=== PATIENT | female | born 1975 | race African-American/Black ===

== ENCOUNTER 2017-04-03 16:43 | Emergency (ER) | payer MEDICARE, MEDICAID ==
--- NOTE | 2017-04-03 17:57 | ULT ---
RIGHT LOWER EXTREMITY VENOUS DOPPLER ULTRASOUND: Date: 04-03-17 Comparison: None. History: Pain. History of blood clot. Assess for DVT. Technique: Multiplanar grayscale sonographic imaging of the venous structures of the right lower extr emity obtained with color flow and spectral analysis. FINDINGS: The right common femoral vein, greater saphenous vein, profunda femoral vein, femoral vein, popliteal vein, and posterior tibial vein are patent. There is normal blood flow, augmentation, and compression within the deep venous system on the right. No evidence for deep venous thrombosis of the right lower extremity. IMPRESSION: No evidence for deep venous thrombosis of the right lower extremity. POS: [facility]
[2017-04-03] MEDS ORDERED: Ketorolac Tromethamine 30 MG/ML VIAL ONE (18:50)
== END 2017-04-03 19:27 | disposition home or self-care (01) ==
LOC: ERS 16:43
DX: M25.561 Pain in right knee (principal); I11.0 Hypertensive heart disease with heart failure; I50.9 Heart failure, unspecified; E11.9 Type 2 diabetes mellitus without complications; G47.30 Sleep apnea, unspecified; J45.909 Unspecified asthma, uncomplicated; F41.9 Anxiety disorder, unspecified; F32.9 Major depressive disorder, single episode, unspecified; M79.605 Pain in left leg
CPT/HCPCS: 96372; J1885

== ENCOUNTER 2017-05-26 02:14 | Emergency (ER) | payer MEDICARE, MEDICAID ==
[2017-05-26] MEDS ORDERED: Bupivacaine 0.25% 10 ML VIAL ONE (02:29)
[2017-05-26] MEDS ORDERED: Lidocaine 1% w/Epinephrine 1:100K 20 ML VIAL ONE (02:29)
[2017-05-26] MEDS ORDERED: Lidocaine Viscous Sol 2% 15 ml UD Cup ONE (02:31)
[2017-05-26 02:39] LABS: Specific Gravity 1.025 (1.002-1.036)
[2017-05-26 02:40] LABS: Pregnancy Test - Urine (BHCG) Negative (Negative); Pregu Control Background? CLEAR/WHITE (CLR/WHITE); Pregu Control Bar Appear? YES (CONTROL BAR)
[2017-05-26] MEDS ORDERED: Ketorolac Tromethamine 30 MG/ML VIAL ONE (02:54)
== END 2017-05-26 03:13 | disposition home or self-care (01) ==
LOC: ERS 02:14
DX: K02.9 Dental caries, unspecified (principal); I11.0 Hypertensive heart disease with heart failure; I50.9 Heart failure, unspecified; E11.9 Type 2 diabetes mellitus without complications; E03.9 Hypothyroidism, unspecified; G47.30 Sleep apnea, unspecified; J45.909 Unspecified asthma, uncomplicated; F41.9 Anxiety disorder, unspecified; F32.9 Major depressive disorder, single episode, unspecified; Z79.82 Long term (current) use of aspirin; Z79.84 Long term (current) use of oral hypoglycemic drugs; Z79.899 Other long term (current) drug therapy
CPT/HCPCS: 81025; 99283; J1885; J2001; S0020

== ENCOUNTER 2017-08-05 16:40 | Emergency (ER) | payer MEDICARE, MEDICAID ==
[2017-08-05 17:10] LABS: #Eosinphils 0.1 thou/uL (0.0-0.7); #Lymphocytes 1.6 thou/uL (1.20-3.40); #Monocytes 0.4 thou/uL (0.11-0.59); #Neutrophils 2.4 thou/uL (1.40-6.50); %Basophils 0.6 % (0.0-1.0); %Eosinophils 2.6 % (0.0-10.0); %Lymphocytes 35.5 % (21.0-51.0); %Monocytes 9.4 % (0.0-10.0); %Neutrophils 51.9 % (42.0-75.0); Hemoglobin 11.7 g/dL (12.0-16.0); Mean Corpuscular HGB CONC 34.2 g/dL (32.0-36.0); Mean Corpuscular Hemoglobin 29.6 pg (27.0-31.0); Mean Corpuscular Volume 86.5 fL (78.0-98.0); Mean Platelet Volume 5.9 fL (7.4-10.4); Platelet Count 250 thou/uL (130-400); RBC Distribution Width 12.4 % (11.5-14.5); Red Blood Cell (RBC) Count 3.96 mill/uL (4.20-5.40); White Blood Cell (WBC) Count 4.6 thou/uL (4.8-10.8)
[2017-08-05] MEDS ORDERED: Nitroglycerin 0.4 MG TAB (25 Tab Bottle) ONE (17:18)
[2017-08-05 17:29] LABS: ALT (SGPT) 30 U/L (8-55); AST (SGOT) 24 U/L (5-34); Albumin 4.1 g/dL (3.5-5.0); Alkaline Phosphatase 81 U/L (40-150); Anion Gap 12 mmol/L (10-20); BUN (Urea Nitrogen) 10 mg/dL (7.0-18.7); Bilirubin, Total 0.3 mg/dL (0.2-1.2); Calc. Creatinine Clearance 0 mL/min (70-130); Calcium 9.2 mg/dL (7.8-10.44); Carbon Dioxide 28 mmol/L (22-29); Chloride 101 mmol/L (98-107); Estimated GFR-MDRD Greater than 90; Globulin 4.2 g/dL (2.4-3.5); Glucose 103 mg/dL (70-105); Lipase 15 U/L (8-78); Protein, Total 8.3 g/dL (6.0-8.3); Sodium 137 mmol/L (136-145)
[2017-08-05 17:31] LABS: CKMB 0.9 ng/mL (0-6.6); Troponin I Less than 0.010 ng/mL (< 0.028)
[2017-08-05] MEDS ORDERED: Acetaminophen 500 MG TAB ONE (17:59)
--- NOTE | 2017-08-05 18:21 | RAD ---
PORTABLE CHEST ONE VIEW: 08/05/17 at 5:04 p.m. HISTORY: Chest pain. FINDINGS: Comparison made with exam of 08/10/16. The heart size is normal. The lungs are well expanded without lobar consolidation, pneumothoraces, fr ank pulmonary edema or pleural effusion. IMPRESSION: No radiographic evidence of acute cardiopulmonary process. POS: [facility]
[2017-08-05 20:40] LABS: Troponin I Less than 0.010 ng/mL (< 0.028)
--- NOTE | 2017-08-06 02:13 | HP ---
DATE OF EVALUATION: 08/05/2017 PRIMARY CARE PROVIDER: Manisha Clayton M.D. CHIEF COMPLAINT: Right upper back and chest pain. HISTORY OF PRESENT ILLNESS: This is a 42-year-old -[place] female who presents to [facility] complaining of one day history of increased right upper back and right-sided chest pain. The patient states that she was mowing her yard and weed eating during the afternoon on 08/04/2017, noticing increased tightness and pain in the right upper chest in the evening 08/04/2017. The patient became concerned when the pain was worse and presented to the emergency room for evalua tion. The patient denied any direct trauma, shortness of breath, fever, chills, increased cough, con gestion, or hemoptysis. The patient denied any left arm discomfort, jaw pain, unilateral weakness, i ncreased lower extremity swelling. The patient admits to history of diabetes mellitus type 2, hypert ension, hypothyroidism, and seizure disorder. The patient denies any recent change in chronic medica tion regimen, exposure history or known sick contacts. In the emergency room, the patient underwent general evaluation including metabolic screening which was negative. The patient was noted with elev ated blood pressure at the time of admission in the emergency room, treated with topical nitroglyceri n and aspirin 324 mg. The patient also received 1 gram of Tylenol and intravenous normal saline x500 mL. PAST MEDICAL HISTORY: 1. Hypertension. 2. Diabetes mellitus type 2. 3. Hypothyroidism. 4. Seizure disorder. 5. Degenerative joint disease. PAST SURGICAL HISTORY: 1. Status post left knee arthroscopy. 2. Status post left total knee arthroplasty. 3. Status post left patellofemoral resurfacing with revision of left total knee arthroplasty in 2017 . CURRENT MEDICATIONS: Based on previous evaluation in 2017: 1. Aspirin 81 mg 1 tab p.o. daily. 2. Trilipix 135 mg p.o. daily. 3. Lisinopril/hydrochlorothiazide 30 mg/12.5 mg p.o. daily. 4. Amlodipine 5 mg one tablet p.o. daily. 5. Metformin 500 mg p.o. b.i.d. 6. Prilosec 20 mg p.o. daily. 7. Phenytoin 200 mg p.o. q.a.m. and 300 mg p.o. at bedtime. 8. Levothyroxine 100 mcg p.o. daily. ALLERGIES: TRAMADOL, NIACIN. FAMILY HISTORY: Positive for arrhythmia in her mother with defibrillator placement. SOCIAL HISTORY: The patient is , resides in the [place], [place] area. No tobacco, alcohol, or i llicit drug use. Functional of all activities of daily living. REVIEW OF SYSTEMS: The following complete review of systems was negative, unless otherwise mentioned in the HPI or below: Constitutional: Weight loss or gain, ability to conduct usual activities. Sk in: Rash, itching. Eyes: Double vision, pain. ENT/Mouth: Nose bleeding, neck stiffness, pain, ten derness. Cardiovascular: Palpitations, dyspnea on exertion, orthopnea. Respiratory: Shortness of breath, wheezing, cough, hemoptysis, fever or night sweats. Gastrointestinal: Poor appetite, abdomi nal pain, heartburn, nausea, vomiting, constipation, or diarrhea. Genitourinary: Urgency, frequency , dysuria, nocturia. Musculoskeletal: Pain, swelling. Neurologic/Psychiatric: Anxiety, depression . Allergy/Immunologic: Skin rash, bleeding tendency. Otherwise negative except as stated per HPI. PHYSICAL EXAMINATION: VITAL SIGNS: Currently, blood pressure 126/71, pulse 85, respiratory rate 18, temperature 98.6 degre es Fahrenheit, O2 saturation 97% on room air. GENERAL APPEARANCE: This is a 42-year-old -[place] female, alert and oriented x3, pleasant, conversant, in no acute distress. HEENT: Pupils are equal, round, and reactive to light and accommodation. Extraocular muscles are in tact. No scleral icterus, no conjunctival injection. Nares patent. OP is clear. Teeth in fair rep air. NECK: Supple, no cervical adenopathy, no thyromegaly, no carotid bruits, no JVD appreciated. Cervic al spine with full active and passive range of motion. No meningeal signs appreciated. CHEST: Lungs are clear to auscultation bilaterally. CARDIOVASCULAR: S1, S2, without noted murmur, rub or gallop. ABDOMEN: Obese, soft, nontender, nondistended. Bowel sounds are positive in all four quadrants. Th ere is no hepatosplenomegaly, no abdominal bruits, no rebound or guarding appreciated. EXTREMITIES: Warm and dry with fair turgor. No clubbing, cyanosis or asymmetric edema appreciated. Pulses palpable distally at the dorsalis pedis, posterior tibial, and popliteal arteries bilaterally . Capillary refill less than 2 seconds. NEUROLOGIC: Cranial nerves II-XII are grossly intact. No focal or lateralizing signs appreciated. MUSCULOSKELETAL: Positive reproducible chest pain in the right upper chest wall in the pectoral latisha on as well as right upper back in the suprascapular region. PERTINENT LABORATORY AND X-RAY FINDINGS: Complete metabolic profile within normal limits. Troponin I negative x1. BNP less than 10. CBC showed hemoglobin 12, hematocrit 34, and platelet count 250. Portable chest x-ray dated 08/05/2017 showed no acute cardiopulmonary process. EKG dated 08/05/2017 by my interpretation shows sinus mechanism with heart rates in the 70s. Normal R-wave progression no zacarias in precordial leads. Normal axis. No acute ST-T wave changes appreciated. ASSESSMENT AND PLAN: 1. Musculoskeletal chest pain. The patient will be treated with ibuprofen 800 mg p.o. t.i.d. p.r.n. pain. Education reassurance given. General range of motion exercises. No evidence to suggest card iogenic source. 2. Hypertension, improved. Resume home antihypertensive regimen and monitor clinical response. 3. Hypothyroidism. Continue home levothyroxine 100 mcg p.o. daily. 4. Diabetes mellitus type 2, stable. Continue metformin 500 mg p.o. b.i.d. DISPOSITION: Discharged home 08/05/2017 with follow up with primary care provider, Dr. Clayton.
== END 2017-08-05 20:16 | disposition home or self-care (01) ==
LOC: ERS 16:40
DX: R07.89 Other chest pain (principal); E11.9 Type 2 diabetes mellitus without complications; E03.9 Hypothyroidism, unspecified; I11.0 Hypertensive heart disease with heart failure; G47.30 Sleep apnea, unspecified; J45.909 Unspecified asthma, uncomplicated; F41.9 Anxiety disorder, unspecified; F32.9 Major depressive disorder, single episode, unspecified; Z86.718 Personal history of other venous thrombosis and embolism
CPT/HCPCS: 36415; 71045; 80053; 82553; 83690; 83880; 84484; 85025; 93005; 96360

== ENCOUNTER 2018-01-03 23:50 | Emergency (ER) | payer MEDICARE, OTHER ==
--- NOTE | 2018-01-04 08:28 | RAD ---
CHEST TWO VIEWS: History: Cough. Comparison: 2012 FINDINGS: Lungs are clear. No pneumothorax or effusion. Cardiac silhouette and mediastinal contours are within normal limits. IMPRESSION: No acute intrathoracic abnormality. POS: [facility]
== END 2018-01-04 02:58 | disposition home or self-care (01) ==
LOC: ERS 23:50
DX: J20.9 Acute bronchitis, unspecified (principal); H10.9 Unspecified conjunctivitis; E11.9 Type 2 diabetes mellitus without complications; E03.9 Hypothyroidism, unspecified; I10 Essential (primary) hypertension; G47.30 Sleep apnea, unspecified; J45.909 Unspecified asthma, uncomplicated; Z86.718 Personal history of other venous thrombosis and embolism; F41.9 Anxiety disorder, unspecified; F32.9 Major depressive disorder, single episode, unspecified; Z79.84 Long term (current) use of oral hypoglycemic drugs; Z79.899 Other long term (current) drug therapy; Z79.82 Long term (current) use of aspirin
CPT/HCPCS: 71046; 87804

== ENCOUNTER 2018-05-10 18:00 | Emergency (ER) | payer MEDICARE, MEDICAID ==
[2018-05-10] MEDS ORDERED: Ondansetron ODT 4 MG TAB ONE (18:28)
[2018-05-10] MEDS ORDERED: Acetaminophen 500 MG TAB ONE (18:48)
== END 2018-05-10 20:25 | disposition home or self-care (01) ==
LOC: ERS 18:00
DX: R11.2 Nausea with vomiting, unspecified (principal); R19.7 Diarrhea, unspecified; E11.9 Type 2 diabetes mellitus without complications; I11.0 Hypertensive heart disease with heart failure; I50.9 Heart failure, unspecified; E03.9 Hypothyroidism, unspecified; J45.909 Unspecified asthma, uncomplicated; F41.9 Anxiety disorder, unspecified; F32.9 Major depressive disorder, single episode, unspecified; Z86.718 Personal history of other venous thrombosis and embolism
CPT/HCPCS: 87804; 96372; J0500; Q0162

== ENCOUNTER 2018-07-20 00:18 | Emergency (ER) | payer MEDICARE, OTHER ==
[2018-07-20] MEDS ORDERED: Ondansetron ODT 4 MG TAB ONE (01:39)
[2018-07-20] MEDS ORDERED: Morphine 4 MG/ML VIAL ONE (01:39)
[2018-07-20] MEDS ORDERED: Lidocaine 1% w/Epinephrine 1:100K 20 ML VIAL ONE (01:47)
--- NOTE | 2018-07-20 07:47 | RAD ---
XR Elbow Rt 4 View STANDARD History: [Fall. Injury.] Comparison: None. Findings: No significant joint effusion. No acute displaced fracture or malalignment. Soft tissues ar e unremarkable. Impression: No acute displaced fracture or malalignment.
--- NOTE | 2018-07-20 07:49 | RAD ---
XR Shoulder Rt 3 View STANDARD History: [Fall. Pain.] Comparison: None. Findings: There is abnormal widening between the scapular body and the ribs. Acromioclavicular alignm ent is normal. Normal glenohumeral alignment. No acute rib fracture. Impression: Findings concerning for scapulothoracic dissociation probably be sequelae of habitus. Cli nical correlation and orthopedic consultation advised.
--- NOTE | 2018-07-20 07:51 | CT ---
PRELIMINARY REPORT/[facility]/EMERGENCY AFTER HOURS PROCEDURE: EXAM: CT Head Without Contrast EXAM DATE/TIME: 07/20/2018 1:21 AM CLINICAL HISTORY: 43 years old, female; Injury or trauma; Initial encounter; Abrasion; Head, generalized; Patient HX: P revious on pacs. . . Er 9. . . 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 Pain on the arm. Patient c. O head pain. Unknown loc. TECHNIQUE: Imaging protocol: Axial computed tomography images of the head without contrast. COMPARISON: No relevant prior studies available. FINDINGS: Brain: No hemorrhage. No significant white matter disease. No edema. Ventricles: No ventriculomegaly. Bones/joints: Unremarkable. No acute fracture. Sinuses: Visualized sinuses are unremarkable. No fluid levels. Mastoid air cells: Visualized mastoid air cells are well aerated. No mastoid effusion. Soft tissues: Unremarkable. IMPRESSION: No acute intracranial abnormality. Thank you for allowing us to participate in the care of your patient. Dictated and Authenticated by: Linda Carvalho MD 07/20/2018 2:18 AM Central Time ([place] & [place]) FINAL REPORT HEAD CT WITHOUT CONTRAST: Date: 07/20/18 HISTORY: Fall. Pain. COMPARISON: 04/21/15. FINDINGS: No parenchymal hemorrhage or extra-axial hematoma. Brain volume is age-appropriate. Cortical ochoa-whi te matter differentiation preserved. Calvarium is intact. There is a foreign body or possible surgical clips in the left lateral periorbit al soft tissues. Correlate clinically. IMPRESSION: This report is in agreement with the preliminary report by Nayana. 1. No intracranial post-traumatic sequelae. 2. Probable surgical clips in the left lateral periorbital soft tissues. Correlate clinically. CODE T. POS: [facility]
--- NOTE | 2018-07-20 07:52 | RAD ---
XR Forearm Rt 2 View STANDARD History: [Fall. Forearm pain.] Comparison: None. Findings: Soft tissues are edematous. No acute displaced fracture or malalignment of the forearm. Impression: Intact forearm.
--- NOTE | 2018-07-20 07:56 | RAD ---
THREE VIEWS RIGHT WRIST: COMPARISON: 01/11/2013. HISTORY: Fall with right wrist pain. FINDINGS: Three views right wrist show no evidence of acute fracture or dislocation. Bone anchors are seen in the scaphoid from prior right wrist surgery. No degenerative changes are seen. IMPRESSION: No evidence of acute osseous abnormality. POS: [facility]
--- NOTE | 2018-07-20 07:57 | CT ---
PRELIMINARY REPORT/[facility]/EMERGENCY AFTER HOURS PROCEDURE: EXAM: CT Head Without Contrast EXAM DATE/TIME: 07/20/2018 1:21 AM CLINICAL HISTORY: 43 years old, female; Injury or trauma; Initial encounter; Abrasion; Head, generalized; Patient HX: P revious on pacs. . . Er 9. . . 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 Pain on the arm. Patient c. O head pain. Unknown loc. TECHNIQUE: Imaging protocol: Axial computed tomography images of the head without contrast. COMPARISON: No relevant prior studies available. FINDINGS: Brain: No hemorrhage. No significant white matter disease. No edema. Ventricles: No ventriculomegaly. Bones/joints: Unremarkable. No acute fracture. Sinuses: Visualized sinuses are unremarkable. No fluid levels. Mastoid air cells: Visualized mastoid air cells are well aerated. No mastoid effusion. Soft tissues: Unremarkable. IMPRESSION: No acute intracranial abnormality. Thank you for allowing us to participate in the care of your patient. Dictated and Authenticated by: Linda Carvalho MD 07/20/2018 2:18 AM Central Time ([place] & [place]) FINAL REPORT CT CERVICAL SPINE WITHOUT CONTRAST: Date: 07/20/18 COMPARISON: 04/21/15. HISTORY: Fall. Pain. Trauma. FINDINGS: This report is in agreement with the preliminary report by Nayana. No evidence of fracture or dislocati on. There are degenerative changes with varying degrees of central canal stenosis and foraminal narro wing. IMPRESSION: No fracture. POS: [facility]
== END 2018-07-20 03:25 | disposition home or self-care (01) ==
LOC: ERS 00:18
DX: S41.111A Laceration without foreign body of right upper arm, initial encounter (principal); S09.90XA Unspecified injury of head, initial encounter; M54.2 Cervicalgia; F41.9 Anxiety disorder, unspecified; F32.9 Major depressive disorder, single episode, unspecified; E11.9 Type 2 diabetes mellitus without complications; E03.9 Hypothyroidism, unspecified; I11.0 Hypertensive heart disease with heart failure; I50.9 Heart failure, unspecified; Z86.718 Personal history of other venous thrombosis and embolism; Z79.899 Other long term (current) drug therapy; Z79.84 Long term (current) use of oral hypoglycemic drugs; W19.XXXA Unspecified fall, initial encounter
CPT/HCPCS: 12002; 70450; 72125; 96372; J2001; J2270; Q0162

== ENCOUNTER 2018-08-04 16:54 | Emergency (ER) | payer MEDICARE, OTHER | END 2018-08-04 17:33 | disposition home or self-care (01) | LOC: ERS 16:54 | DX: S41.111D Laceration without foreign body of right upper arm, subsequent encounter (principal); L03.113 Cellulitis of right upper limb; E11.9 Type 2 diabetes mellitus without complications; I11.0 Hypertensive heart disease with heart failure; I50.9 Heart failure, unspecified; E03.9 Hypothyroidism, unspecified; J45.909 Unspecified asthma, uncomplicated; F41.9 Anxiety disorder, unspecified; F32.9 Major depressive disorder, single episode, unspecified; W26.8XXD Contact with other sharp object(s), not elsewhere classified, subsequent encounter; Z86.718 Personal history of other venous thrombosis and embolism; Z79.84 Long term (current) use of oral hypoglycemic drugs; Z79.899 Other long term (current) drug therapy | CPT/HCPCS: 99281 ==

== ENCOUNTER 2018-10-14 03:35 | Emergency (ER) | payer MEDICARE, OTHER ==
[2018-10-14 04:10] LABS: #Eosinphils 0.1 thou/uL (0.0-0.7); #Lymphocytes 1.6 thou/uL (1.20-3.40); #Monocytes 0.5 thou/uL (0.11-0.59); %Basophils 0.6 % (0.0-1.0); %Eosinophils 1.2 % (0.0-10.0); %Lymphocytes 30.5 % (21.0-51.0); %Monocytes 9.1 % (0.0-10.0); %Neutrophils 58.7 % (42.0-75.0); Hemoglobin 11.6 g/dL (12.0-16.0); Mean Corpuscular HGB CONC 34.9 g/dL (32.0-36.0); Mean Corpuscular Hemoglobin 31.1 pg (27.0-31.0); Mean Corpuscular Volume 89.1 fL (78.0-98.0); Platelet Count 255 thou/uL (130-400); RBC Distribution Width 12.2 % (11.5-14.5); Red Blood Cell (RBC) Count 3.73 mill/uL (4.20-5.40); White Blood Cell (WBC) Count 5.2 thou/uL (4.8-10.8)
--- NOTE | 2018-10-14 07:45 | ULT ---
PRELIMINARY REPORT/[facility]/EMERGENCY AFTER HOURS PROCEDURE: EXAM: US Duplex Right Lower Extremity Veins, Limited EXAM DATE/TIME: 10/14/2018 4:23 AM CLINICAL HISTORY: 43 years old, female; Other: Pain- RT knee/ thigh TECHNIQUE: Imaging protocol: Real-time Duplex ultrasound of the Right Lower Extremity with 2-D ochoa scale, color Doppler flow and spectral waveform analysis with image documentation. Limited exam was focused on th e right lower extremity veins. COMPARISON: No relevant prior studies available. FINDINGS: Right deep veins: Unremarkable. The common femoral, femoral, proximal profunda femoral and popliteal veins are patent without thrombus. Normal Doppler waveforms. Normal compressibility and/or augmentati on response. Right superficial veins: Unremarkable. Saphenofemoral junction is patent without thrombus. Soft tissues: 2.4 x 1.6 x 0.6 cm fluid pocket at the lateral aspect of the right knee suspicious for a small joint effusion. IMPRESSION: 1. No DVT. 2. 2.4 x 1.6 x 0.6 cm fluid pocket at the lateral aspect of the right knee suspicious for a small елена nt effusion. Thank you for allowing us to participate in the care of your patient. Dictated and Authenticated by: Roger Rodríguez MD 10/14/2018 5:30 AM Central Time ([place] & [place]) FINAL REPORT EMERGENCY AFTER HOURS RIGHT LOWER EXTREMITY VENOUS DUPLEX ULTRASOUND INCLUDING COLOR AND SPECTRAL DOP PLER IMAGING: DATE: HISTORY: Pain right knee and thigh. History of deep venous thrombosis in the past. FINDINGS: Exam performed from groin to ankle, including visualized greater saphenous, common femoral, superfici al femoral, profunda femoral, popliteal, trifurcation, and posterior tibial vein regions. There is ph asic flow at all levels with normal compressibility and normal augmentation. No intraluminal thrombus . There is a small fluid collection in the lateral aspect at the right knee probably joint effusion. IMPRESSION: No evident for deep venous thrombosis. Report in agreement with preliminary report given on-call by Nayana. POS: [facility]
== END 2018-10-14 05:42 | disposition home or self-care (01) ==
LOC: ERS 03:35
DX: M79.604 Pain in right leg (principal); I11.0 Hypertensive heart disease with heart failure; I50.9 Heart failure, unspecified; E11.9 Type 2 diabetes mellitus without complications; E03.9 Hypothyroidism, unspecified; G47.30 Sleep apnea, unspecified; J45.909 Unspecified asthma, uncomplicated; Z86.718 Personal history of other venous thrombosis and embolism; F41.9 Anxiety disorder, unspecified; F32.9 Major depressive disorder, single episode, unspecified; Z79.899 Other long term (current) drug therapy
CPT/HCPCS: 36415; 85025

== ENCOUNTER 2018-11-19 09:32 | Emergency (ER) | payer MEDICARE, OTHER ==
[2018-11-19 10:11] LABS: #Eosinphils 0.1 thou/uL (0.0-0.7); #Lymphocytes 1.8 thou/uL (1.20-3.40); #Monocytes 0.5 thou/uL (0.11-0.59); #Neutrophils 2.7 thou/uL (1.40-6.50); %Basophils 0.5 % (0.0-1.0); %Eosinophils 2.4 % (0.0-10.0); %Lymphocytes 35.4 % (21.0-51.0); %Monocytes 10.1 % (0.0-10.0); %Neutrophils 51.7 % (42.0-75.0); Hemoglobin 11.6 g/dL (12.0-16.0); Mean Corpuscular HGB CONC 34.2 g/dL (32.0-36.0); Mean Corpuscular Hemoglobin 29.9 pg (27.0-31.0); Mean Corpuscular Volume 87.4 fL (78.0-98.0); Mean Platelet Volume 6.2 fL (7.4-10.4); Platelet Count 235 thou/uL (130-400); RBC Distribution Width 11.8 % (11.5-14.5); Red Blood Cell (RBC) Count 3.89 mill/uL (4.20-5.40); White Blood Cell (WBC) Count 5.2 thou/uL (4.8-10.8)
--- NOTE | 2018-11-19 10:13 | RAD ---
PORTABLE CHEST 1 VIEW: DATE: 11/19/2018. TIME: 9:54 a.m. HISTORY: Dyspnea. Dizziness. FINDINGS: Comparison is made to the exam of 08/05/2017. The heart size is normal. No focal areas of consolidation, pneumothoraces, or pleural effusions are seen. IMPRESSION: No radiographic evidence of acute cardiopulmonary process. POS: [facility]
[2018-11-19 10:38] LABS: ALT (SGPT) 23 U/L (8-55); AST (SGOT) 25 U/L (5-34); Albumin 4.1 g/dL (3.5-5.0); Alkaline Phosphatase 66 U/L (40-110); Anion Gap 11 mmol/L (10-20); BUN (Urea Nitrogen) 10 mg/dL (7.0-18.7); Bilirubin, Total 0.2 mg/dL (0.2-1.2); Calc. Creatinine Clearance 0 mL/min (70-130); Carbon Dioxide 28 mmol/L (22-29); Chloride 104 mmol/L (98-107); Estimated GFR-MDRD Greater than 90; Globulin 3.3 g/dL (2.4-3.5); Glucose 118 mg/dL (70-105); Protein, Total 7.4 g/dL (6.0-8.3); Sodium 139 mmol/L (136-145)
[2018-11-19 11:09] LABS: Actual Bicarbonate (HCO3a) 23.5 mEq/L (22-28); Analyzer IN Cardio ER; Base Excess (BEa) -0.7 mEq/L (-2.0 to +3.0); Calcium, Ionized 1.19 mmol/L (1.12-1.30); Carboxyhemoglobin (COHb) 0.3 gm% (0.0-3.0); Hemoglobin (Hb) 12.4 g/dL (12.0-16.0); O2 Tension (PaO2) 97.1 mmHg (80.0-100.0); Potassium - ABG Lab 3.83 mmol/L (3.70-5.30); pH, Arterial 7.42 (7.35-7.45)
[2018-11-19 11:10] LABS: Puncture Site RRA
== END 2018-11-19 12:12 | disposition home or self-care (01) ==
LOC: ERS 09:32
DX: J04.0 Acute laryngitis (principal); E11.9 Type 2 diabetes mellitus without complications; E03.9 Hypothyroidism, unspecified; I11.0 Hypertensive heart disease with heart failure; I50.9 Heart failure, unspecified; J45.909 Unspecified asthma, uncomplicated; Z86.718 Personal history of other venous thrombosis and embolism; F41.9 Anxiety disorder, unspecified; F32.9 Major depressive disorder, single episode, unspecified; Z79.899 Other long term (current) drug therapy; Z79.82 Long term (current) use of aspirin; Z79.84 Long term (current) use of oral hypoglycemic drugs
CPT/HCPCS: 36415; 71045; 80053; 82805; 84484; 85025; 93005

== ENCOUNTER 2019-04-21 23:58 | Emergency (ER) | payer MEDICARE, MEDICAID | END 2019-04-22 01:45 | disposition home or self-care (01) | LOC: ERS 23:58 | DX: S20.212A Contusion of left front wall of thorax, initial encounter (principal); S20.211A Contusion of right front wall of thorax, initial encounter; M62.838 Other muscle spasm; I20.9 Angina pectoris, unspecified; I11.0 Hypertensive heart disease with heart failure; I50.9 Heart failure, unspecified; E11.9 Type 2 diabetes mellitus without complications; E03.9 Hypothyroidism, unspecified; G47.30 Sleep apnea, unspecified; J45.909 Unspecified asthma, uncomplicated; Z86.718 Personal history of other venous thrombosis and embolism; F41.9 Anxiety disorder, unspecified; F32.9 Major depressive disorder, single episode, unspecified; Z79.899 Other long term (current) drug therapy; Z79.84 Long term (current) use of oral hypoglycemic drugs; Z79.82 Long term (current) use of aspirin; Z79.51 Long term (current) use of inhaled steroids; V43.52XA Car driver injured in collision with other type car in traffic accident, initial encounter | CPT/HCPCS: 99281 ==

== ENCOUNTER 2019-11-14 11:26 | Emergency (ER) | payer MEDICARE, MEDICAID ==
[2019-11-14] MEDS ORDERED: Aspirin Chewable 81 MG TAB ONE (12:15)
[2019-11-14] MEDS ORDERED: Morphine 4 MG/ML VIAL ONE (12:15)
[2019-11-14] MEDS ORDERED: Ondansetron PF 4 MG/2 ML Vial ONE (12:15)
[2019-11-14] MEDS ORDERED: Acetaminophen 500 MG TAB ONE (12:15)
--- NOTE | 2019-11-14 12:22 | RAD ---
CHEST 1 VIEW: Date: 11/14/2019 HISTORY: Mid sternal chest pain. COMPARISON: 11/19/2018. FINDINGS: Normal cardiac silhouette. Pulmonary vessels and hilum are normal. Costophrenic angles are clear. No consolidation or mass. No pneumothorax or acute osseous abnormalities. IMPRESSION: No acute cardiopulmonary process. POS: [facility]
[2019-11-14 12:34] LABS: #Eosinphils 0.1 thou/uL (0.0-0.7); #Lymphocytes 1.9 thou/uL (1.20-3.40); #Monocytes 0.4 thou/uL (0.11-0.59); #Neutrophils 1.7 thou/uL (1.40-6.50); %Basophils 1.1 % (0.0-1.0); %Eosinophils 3.1 % (0.0-10.0); %Lymphocytes 45.9 % (21.0-51.0); %Monocytes 9.9 % (0.0-10.0); %Neutrophils 40.1 % (42.0-75.0); Mean Corpuscular HGB CONC 32.9 g/dL (32.0-36.0); Mean Corpuscular Volume 88.2 fL (78.0-98.0); Mean Platelet Volume 6.4 fL (7.4-10.4); Platelet Count 258 thou/uL (130-400); RBC Distribution Width 12.3 % (11.5-14.5); Red Blood Cell (RBC) Count 4.13 mill/uL (4.20-5.40); White Blood Cell (WBC) Count 4.2 thou/uL (4.8-10.8)
[2019-11-14 12:40] LABS: BHCG - Serum Negative (NEGATIVE); Pregs Control Background? CLEAR/WHITE (CLR/WHITE); Pregs Control Bar Appear? YES (CONTROL BAR)
[2019-11-14 12:47] LABS: ALT (SGPT) 25 U/L (8-55); AST (SGOT) 23 U/L (5-34); Albumin 3.9 g/dL (3.5-5.0); Alkaline Phosphatase 78 U/L (40-110); Anion Gap 13 mmol/L (10-20); BUN (Urea Nitrogen) 11 mg/dL (7.0-18.7); Bilirubin, Total 0.3 mg/dL (0.2-1.2); CK (CPK) 111 U/L (29-168); Calc. Creatinine Clearance 0 mL/min (70-130); Calcium 8.6 mg/dL (7.8-10.44); Carbon Dioxide 22 mmol/L (22-29); Chloride 105 mmol/L (98-107); Estimated GFR-MDRD Greater than 90; Globulin 3.9 g/dL (2.4-3.5); Glucose 99 mg/dL (70-105); Potassium 3.8 mmol/L (3.5-5.1); Protein, Total 7.8 g/dL (6.0-8.3); Sodium 136 mmol/L (136-145)
[2019-11-14] MEDS ORDERED: Iopamidol 370 76% 100 ML VIAL ONE (12:51)
[2019-11-14] MEDS ORDERED: Ketorolac Tromethamine 30 MG/ML VIAL ONE (13:39)
--- NOTE | 2019-11-14 15:21 | CT ---
CTA CHEST WITH CONTRAST: Date: 11/14/2019 COMPARISON: 08/11/2016. HISTORY: Chest pain. History of deep venous thrombosis. TECHNIQUE: Multiple contiguous axial images were obtained in a CTA of the chest with contrast per pulmonary embo lis protocol. 3D oblique MIP reformats and direct coronal reformats were performed. FINDINGS: This exam is slightly limited secondary to poor timing of contrast bolus. No central pulmonary emboli are seen. The subsegmental vessels cannot be entirely evaluated. The heart is normal in size without focal cardiac abnormality. No hilar or mediastinal lymphadenopathy are seen. No infiltrates or masses are seen in the lungs. No pneumothorax or pleural effusions seen. Degenerative changes are seen in the spine. Visualized subdiaphragmatic structures and chest wall sof t tissues are unremarkable. IMPRESSION: No evidence of pulmonary thromboembolism. POS: [facility]
== END 2019-11-14 14:00 | disposition home or self-care (01) ==
LOC: ERS 11:26
DX: R07.89 Other chest pain (principal); M94.0 Chondrocostal junction syndrome [Tietze]; I11.0 Hypertensive heart disease with heart failure; I50.9 Heart failure, unspecified; E11.9 Type 2 diabetes mellitus without complications; E03.9 Hypothyroidism, unspecified; J45.909 Unspecified asthma, uncomplicated; F41.9 Anxiety disorder, unspecified; F32.9 Major depressive disorder, single episode, unspecified; Z79.01 Long term (current) use of anticoagulants; Z86.718 Personal history of other venous thrombosis and embolism; Z79.84 Long term (current) use of oral hypoglycemic drugs; Z79.51 Long term (current) use of inhaled steroids; Z79.899 Other long term (current) drug therapy
CPT/HCPCS: 71045; 71275; 80053; 82550; 84484; 84703; 85025; 93005; 96374; 96375; J1885; J2270; J2405; Q9967

== ENCOUNTER 2019-11-19 13:12 | Outpatient (CLI) | payer MEDICARE, MEDICAID ==
--- NOTE | 2019-11-19 14:12 | RAD ---
RIGHT WRIST THREE VIEWS: 11/19/19 HISTORY: History of right wrist injury. COMPARISON: None. FINDINGS: There is suture anchors within the scaphoid. There is mild STT and first CMC osteoarthrosis. No defin ite acute fracture or subluxation is evident. Carpal alignment is within normal limits. There is mild DRUJ osteoarthrosis. IMPRESSION: No acute osseous abnormality. Mild osteoarthrosis of the right wrist. POS: [facility]
== END 2019-11-19 13:13 | disposition home or self-care (01) ==
LOC: BICRAD 13:12
PROVIDERS: ATTEND Family Medicine
DX: S69.91XA Unspecified injury of right wrist, hand and finger(s), initial encounter (principal); M19.031 Primary osteoarthritis, right wrist

== ENCOUNTER 2020-02-13 15:15 | Inpatient (IN) | payer MEDICARE, MEDICAID ==
[~2020-02-13 15:15] MED LIST: Iopamidol-370 76% 500 ML 1 ML ONE
[2020-02-13 15:56] LABS: #Eosinphils 0.1 thou/uL (0.0-0.7); #Lymphocytes 1.9 thou/uL (1.20-3.40); #Monocytes 0.3 thou/uL (0.11-0.59); %Basophils 0.6 % (0.0-1.0); %Eosinophils 3.3 % (0.0-10.0); %Lymphocytes 44.1 % (21.0-51.0); %Neutrophils 46.1 % (42.0-75.0); Hemoglobin 11.2 g/dL (12.0-16.0); Mean Corpuscular Hemoglobin 28.6 pg (27.0-31.0); Mean Corpuscular Volume 86.8 fL (78.0-98.0); Mean Platelet Volume 6.2 fL (7.4-10.4); Platelet Count 289 thou/uL (130-400); RBC Distribution Width 12.5 % (11.5-14.5); Red Blood Cell (RBC) Count 3.89 mill/uL (4.20-5.40); White Blood Cell (WBC) Count 4.4 thou/uL (4.8-10.8)
--- NOTE | 2020-02-13 16:07 | RAD ---
EXAM: CHEST ONE VIEW: 02/13/20 HISTORY: Chest pain. Lightheadedness. Headache. Minimal cardiomegaly. No confluent pneumonia, overt edema, or pleural effusion. IMPRESSION: Minimal cardiomegaly. No acute intrathoracic disease. No evidence for pneumonia. POS: [facility]
[2020-02-13 16:12] LABS: ALT (SGPT) 24 U/L (8-55); AST (SGOT) 31 U/L (5-34); Alkaline Phosphatase 99 U/L (40-110); Anion Gap 11 mmol/L (10-20); BUN (Urea Nitrogen) 9 mg/dL (7.0-18.7); Bilirubin, Total 0.3 mg/dL (0.2-1.2); CK (CPK) 154 U/L (29-168); Calc. Creatinine Clearance 0 mL/min (70-130); Calcium 8.8 mg/dL (7.8-10.44); Carbon Dioxide 27 mmol/L (22-29); Chloride 102 mmol/L (98-107); Globulin 3.8 g/dL (2.4-3.5); Glucose 102 mg/dL (70-105); Lipase 20 U/L (8-78); Potassium 4.3 mmol/L (3.5-5.1); Protein, Total 7.8 g/dL (6.0-8.3); Sodium 136 mmol/L (136-145)
--- NOTE | 2020-02-13 16:27 | CT ---
CT BRAIN NONCONTRAST: 02/13/20 at 4:06 p.m. HISTORY: 45-year-old female with altered mental status and headache. FINDINGS: There is no midline shift or any other mass effect. There is no evidence of acute intracranial hemor rhage, large cortical infarct, obstructive hydrocephalus, or extraaxial fluid collection. The calvar ium is intact. IMPRESSION: No acute intracranial findings. jn [] POS: [facility]
[2020-02-13] MEDS ORDERED: diphenhydrAMINE 50 MG/ML VIAL ONE (16:38)
[2020-02-13] MEDS ORDERED: Metoclopramide HCl 10 MG/2 ML VIAL ONE (16:38)
[2020-02-13] MEDS ORDERED: Senokot S 8.6-50 MG TAB PO PRN (17:16)
[2020-02-13] MEDS ORDERED: Acetaminophen 325 MG TAB PO PRN (17:16)
[2020-02-13] MEDS ORDERED: Acetaminophen 650 MG Suppository PR PRN (17:16)
[2020-02-13] MEDS ORDERED: Dextrose 50% Abboject 50 ML SYRINGE SLOW IVP PRN (17:36)
[2020-02-13] MEDS ORDERED: HumaLOG 300 UNITS/3 ML VIAL SC PRN ×2 (17:36)
[2020-02-13] MEDS ORDERED: Dextrose 5% in Water 1,000 ML IV PRN (17:36)
[2020-02-13] MEDS ORDERED: Nitroglycerin 0.4 MG TAB (25 Tab Bottle) SL PRN (17:37)
--- NOTE | 2020-02-13 18:08 | CT ---
CT ANGIOGRAM THORAX WITH IV CONTRAST AND 3-D RECONSTRUCTIONS CLINICAL INDICATION: Sudden onset of chest pain. COMPARISON: 11/14/2019 FINDINGS: Pulmonary arteries: No filling defects are seen in the central or segmental pulmonary arteries to sug gest pulmonary embolus. The subsegmental pulmonary arteries are less well opacified. Aorta: Thoracic aorta is normal in caliber without evidence of an aortic dissection. Lungs: Motion artifact is seen at the lung bases related to respiratory motion. Lungs are otherwise c lear. No pleural effusion or consolidation is seen. Large airways are patent. Mediastinum: The heart is mildly enlarged. No enlarged lymph nodes are seen by CT size criteria. No interval change compared to prior study. IMPRESSION: 1. No CT evidence of a pulmonary embolus involving the central or segmental pulmonary arteries. 2. Mild cardiomegaly.
--- NOTE | 2020-02-13 18:55 | RAD ---
RADIOGRAPH CERVICAL SPINE 4 VIEWS: 02/13/20 HISTORY: 45-year-old female with acute traumatic cervicalgia from fall. FINDINGS: C7 is significantly obscured, and T1 is totally obscured, by the shoulders, on the lateral view. Vertebral body heights are maintained. Alignment is normal. No high grade prevertebral soft tissue sw elling. Distal half of odontoid process is obscured by the occipital bone on the open mouth view. IMPRESSION: 1. Lower cervical spine and cervicothoracic junction poorly visualized. 2. No acute fracture identified. JN [] POS: [facility]
--- NOTE | 2020-02-13 18:56 | RAD ---
Exam: XR Knee Rt 4 View STANDARD HISTORY: Right knee pain after a fall/injury. COMPARISON: None FINDINGS: Postoperative changes related to right total knee prosthesis are noted. No hardware complication is s een. No fracture or dislocation is identified. There is a moderate-sized suprapatellar joint effusion. IMPRESSION: 1. Right suprapatellar joint effusion. 2. Right total knee prosthesis. 3. No acute osseous abnormality.
[2020-02-13 19:02] VITALS: BMI 43.2
[2020-02-13 19:31] LABS: Troponin I Less than 0.010 ng/mL (< 0.028)
--- NOTE | 2020-02-13 19:41 | HP ---
TIME OF ASSESSMENT: 1700 hours. PRIMARY CARE PHYSICIAN: Dr. Clayton. CHIEF COMPLAINT: Right-sided weakness and numbness. HISTORY OF PRESENT ILLNESS: This is a 45-year-old woman who presents to the emergency department following collapse that occurred while she was undergoing physical therapy at the [facility]. The patient states that she developed sudden severe substernal chest pain, which she rated 10/10 in severity and the next thing she realized she was following over. The patient states she "blacked out." States she woke up on the floor and had fallen face forward. She states the pain in her chest was a 7/10 when she woke up and she believes she was out for a few seconds. She was recently diagnosed with a right lower extremity DVT associated with recent surgery she had done in November 2019 when she underwent revision of a right total knee arthroplasty. The patient had developed an allergy to the metal prosthesis. She has been on anticoagulation with Eliquis. The patient denies experiencing any chest pain prior to today or experiencing any shortness of breath. Denies any spinning sensation or dizziness prior to falling. She states after her fall, she noted numbness down the entire right side of her body involving her right arm and right leg as well as with reduced sensation on the right side of her face. This has not resolved. She denies any speech difficulties or visual disturbances. She had a mild headache that has resolved. At present, she denies having any chest pain. She received 3 sprays of nitroglycerin and 324 mg of aspirin on arrival to the emergency department. She had an EKG done showing normal sinus rhythm with a heart rate of 81. There were no ST changes or T-wave abnormalities. Laboratory studies were obtained showing a white cell count of 4.4, hemoglobin 11.2, hematocrit 33.8, neutrophils 46.1. CMP showed normal renal function and normal LFTs. CK was 154. Initial troponin was negative. She had a CT of the head done, which demonstrated no acute intracranial findings. She had a chest x-ray done, which showed minimal cardiomegaly and no acute intrathoracic disease or evidence for pneumonia. In the emergency department, she received Reglan 10 mg IV, Benadryl 25 mg IV, and 500 mL of normal saline. PAST MEDICAL HISTORY: 1. CAD. 2. CHF. 3. Type 2 diabetes mellitus. 4. Hypothyroidism. 5. Hypertension. 6. Seizure disorder. 7. Sleep apnea, uses CPAP. 8. Asthma. 9. Right lower extremity DVT, on anticoagulation with Eliquis. 10. Anxiety. 11. Depression. 12. Migraines. 13. Gout. PAST SURGICAL HISTORY: 1. Right wrist surgery. 2. Right and left knee replacement. 3. Revision of right total knee arthroplasty in November 2019. SOCIAL HISTORY: The patient lives with her family. Denies any tobacco use, alcohol consumption, or drug use. She has been mobilizing recently with the help of a cane. FAMILY HISTORY: Noncontributory. ALLERGIES: 1. IBUPROFEN. 2. TRAMADOL. CURRENT MEDICATIONS: 1. Lisinopril 10 mg p.o. daily. 2. Doxycycline 100 mg p.o. b.i.d. 3. Atorvastatin 10 mg p.o. at bedtime. 4. Metformin 500 mg p.o. b.i.d. 5. Levothyroxine 25 mcg p.o. daily. 6. Symbicort. 7. Aspirin 81 mg p.o. daily. 8. Prednisone 50 mg p.o. daily. 9. Albuterol inhaler. 10. Eliquis 5 mg p.o. b.i.d. 11. Tylenol with codeine No. 3 one to two tablets p.o. every 4 to 6 hours as needed for pain. PHYSICAL EXAMINATION: GENERAL: The patient appears to be in no acute distress. VITAL SIGNS: Temperature 97.8, BP 118/61, HR 88, RR 16, O2 saturation 98% on room air. Chest pain 0/10. Pain in the right knee of 3/10. HEENT: Normocephalic and atraumatic. Pupils are equal, round, and reactive to light. Sclerae without icterus. Extraocular movements intact. Oropharynx is clear. Oral mucosa moist. NECK: Supple. Minimal discomfort to the posterior cervical spine. The patient states it is sore from her fall. No pinpoint tenderness. Full range of motion. CARDIAC: Regular rate and rhythm. Some reproducible chest discomfort on palpation, the patient wincing on palpation of the upper chest, states she is sore. LUNGS: Clear to auscultation bilaterally without any wheezes, rales, or rhonchi. ABDOMEN: Soft, obese, nontender, and nondistended. Normoactive bowel sounds present. No palpable masses. No guarding or rigidity. No renal angle tenderness. EXTREMITIES: No edema present. The patient with swelling and pain as well as limited range of motion to the right knee, which she states is ongoing and slightly worsened to fall. She is unsure she fell directly onto her knee. Peripheral pulses equal and strong bilaterally. NEUROLOGIC: Alert and oriented x3. Speech is normal. Facial movements inconsistent as the patient states she has reduced sensation on the right side of her face. However, upon smiling, the patient showed some slight decrease effort and hesitancy and facial movements are working on the right side, however some inability to respond on the left side. The patient able to close both eyes tightly and raise both eyebrows; however, states that she feels the right side is weak. On reassessment, she does not raise her left eyebrow. No tongue deviation. Power 4/5 in the right upper and lower extremities with reduced hand scorekeeper strength. However, the patient was able to reach out and grab type of food brought in by her daughter. INVESTIGATIONS: As mentioned above in HPI. IMPRESSION AND PLAN: Ms. De Leon is a 45-year-old woman who had acute chest pain followed by a syncope and collapse while undergoing rehab. Upon awakening, she experienced right-sided weakness and numbness. She is being admitted for management of the following. 1. Chest pain. The patient is currently pain free. We will continue cardiac monitoring and continue to trend troponins. She has a history of coronary artery disease with multiple comorbidities/stress factors. We will consult Cardiology. Given diagnosis of DVT and collapse, we will obtain a CTA chest to rule out PE. We will obtain urine drug screen. 2. Right sided weakness, rule out CVA. Echo ordered. We will obtain a carotid Doppler. CT of the head done and unremarkable. Continue neuro checks. Neuro consult ordered. Brain MRI ordered. PT/OT consult. Continue aspirin and statin. 3. Syncope/collapse. Unclear secondary to the severe onset of chest pain. As mentioned above, we will continue cardiac monitoring. Orthostatic blood pressures. 4. Right knee pain. We will obtain x-ray of the right knee given the fall and increased discomfort. 5. Type 2 diabetes mellitus. Continue Accu-Cheks before meals and at bedtime. Insulin sliding scale initiated. 6. Hypertension. Monitor blood pressure. Blood pressure is currently 118 systolic. We will hold antihypertensives for now. 7. Hypothyroidism. We will check TSH. 8. Seizure disorder. Resume home medications once verified. 9. Anxiety and depression. Resume home medications once verified. 10. Right lower extremity deep venous thrombosis. Continue Eliquis. 11. Code status full. Surrogate decision maker is her daughter, Archana Montgomery. Case was discussed with attending, who agrees with the plan of care as described above. Job ID: [id number] [facility]
--- NOTE | 2020-02-13 21:28 | ULT ---
BILATERAL CAROTID DUPLEX ULTRASOUND: HISTORY: Dizziness. Rule out CVA. Altered mental status and headache. TECHNIQUE: Grayscale, color-flow and spectral Doppler ultrasound imaging of the extracranial carotid artery syst ems was performed bilaterally. FINDINGS: No significant atherosclerotic plaque is seen within the carotid arteries bilaterally. There is no hemodynamically significant stenosis in the bilateral internal carotid arteries according to the peak systolic velocities and the ICA/CCA ratios. The peak systolic velocity in the right ICA measures 46.3 cm/s. The peak systolic velocity in the left ICA measures 59.1 cm/s. The right IC A/CCA ratio is 0.59, and the left ICA/CCA ratio is 0.79. Vertebral arteries: Antegrade flow is demonstrated in the vertebral arteries bilaterally. IMPRESSION: No hemodynamically significant stenosis in the bilateral internal carotid arteries.
[2020-02-13 23:05] LABS: Troponin I 0.021 ng/mL (< 0.028)
[2020-02-13] MEDS: Famotidine 20 MG TAB PO SCH (23:40)
[2020-02-13] MEDS: Atorvastatin Calcium 40 MG TAB PO SCH (23:40)
[2020-02-14 05:21] LABS: #Eosinphils 0.1 thou/uL (0.0-0.7); #Lymphocytes 2.1 thou/uL (1.20-3.40); #Monocytes 0.4 thou/uL (0.11-0.59); #Neutrophils 2.2 thou/uL (1.40-6.50); %Basophils 0.7 % (0.0-1.0); %Eosinophils 2.8 % (0.0-10.0); %Monocytes 8.2 % (0.0-10.0); %Neutrophils 45.3 % (42.0-75.0); Mean Corpuscular HGB CONC 33.8 g/dL (32.0-36.0); Mean Corpuscular Hemoglobin 29.1 pg (27.0-31.0); Mean Corpuscular Volume 86.2 fL (78.0-98.0); Mean Platelet Volume 6.2 fL (7.4-10.4); Platelet Count 275 thou/uL (130-400); RBC Distribution Width 12.6 % (11.5-14.5); Red Blood Cell (RBC) Count 3.77 mill/uL (4.20-5.40); White Blood Cell (WBC) Count 4.8 thou/uL (4.8-10.8)
[2020-02-14 05:43] LABS: Anion Gap 11 mmol/L (10-20); BUN (Urea Nitrogen) 10 mg/dL (7.0-18.7); Calc. Creatinine Clearance 208 mL/min (70-130); Calcium 8.6 mg/dL (7.8-10.44); Carbon Dioxide 26 mmol/L (22-29); Cardiac Risk 4.8 (Less than 4.5); Chloride 103 mmol/L (98-107); Cholesterol 174 mg/dl (< 200 Desired); Glucose 114 mg/dL (70-105); HDL Cholesterol 36 mg/dL (>60 Neg Risk); LDL Cholesterol, Calculated 88 mg/dL; Potassium 3.8 mmol/L (3.5-5.1); Sodium 136 mmol/L (136-145); Triglycerides 249 mg/dL (Less than 150)
[2020-02-14 05:52] LABS: SARS-CoV-2 MS2 Positive; SARS-CoV-2 N Gene Negative; SARS-CoV-2 S Gene Negative; SARS-CoV-2 by NAA Not Detected (NotDetected); SARS-CoV-2 orf1ab Negative
[2020-02-14] MEDS ORDERED: Non-Formulary Item 1 EACH (Budesonide-Formoterol [Symbicort 80-4.5] 80 MG/4.5 MG Aer) INH PRN (07:28)
[2020-02-14] MEDS ORDERED: Non-Formulary Item 1 EACH (Albuterol Sulfate [Proair Digihaler] 90 MCG Aer.Pw.Bas) INH PRN (07:28)
[2020-02-14] MEDS ORDERED: PROVENTIL INHALER 6.7 G (200 INHALATIONS) INH PRN (07:39)
[2020-02-14] MEDS ORDERED: Mometasone 100 MCG/Formoterol 5 MCG 120 PUFF INHALER INH PRN (07:41)
--- NOTE | 2020-02-14 08:42 | PDOC.HOSPP ---
- Subjective Encounter Date: 02/14/20 Encounter Time: 08:40 Subjective: Reports no issues overnight but continue with weakness on her right side. Also complaining of pain in her knee. Status post right knee xray which showed a joint effusion. She is having an EEG done at present. - Objective Vital Signs & Weight: Vital Signs (12 hours) Temp Pulse Resp BP Pulse Ox 02/14/20 07:46 97.7 F 80 16 128/96 H 96 02/14/20 04:00 98.3 F 75 16 127/79 97 02/13/20 23:47 98.1 F 86 17 132/71 98 Weight Weight 292 lb 11.2 oz Result Diagrams: 02/14/20 04:55 02/14/20 04:55 Additional Labs: Accuchecks 02/13/20 19:55 POC Glucose 131 H Hospitalist ROS - Review of Systems Constitutional: denies: fever, chills, sweats, weakness, malaise, other Eyes: denies: pain, vision change, conjunctivae inflammation, eyelid inflammation, redness, other ENT: denies: ear pain, ear discharge, nose pain, nose discharge, nose congestion, mouth pain, mouth swelling, throat pain, throat swelling, other Respiratory: denies: cough, dry, shortness of breath, hemoptysis, SOB with excertion, pleuritic pain, sputum, wheezing, other Cardiovascular: denies: chest pain, palpitations, orthopnea, paroxysmal noc. dyspnea, edema, light headedness, other Gastrointestinal: denies: nausea, vomiting, abdominal pain, diarrhea, constipati on, melena, hematochezia, other Genitourinary: denies: dysuria, frequency, incontinence, hematuria, retention, other Musculoskeletal: reports: other (right knee pain) Neurological: reports: weakness (right sided), numbness (right arm and leg) - Medication Medications: Active Medications Generic Name Dose Route Start Last Admin Trade Name Freq PRN Reason Stop Dose Admin Atorvastatin Calcium 40 mg 02/13/20 21:00 02/13/20 23:40 Atorvastatin Calcium 40 Mg Tab PO 40 mg HS DOMINIK Administration Famotidine 20 mg 02/13/20 21:00 02/13/20 23:40 Famotidine 20 Mg Tab PO 20 mg BID DOMINIK Administration Sodium Chloride 10 ml 02/13/20 17:16 02/13/20 23:40 Flush - Normal Saline 10 Ml Syringe IVF 10 ml Q12HR PRN Administration Saline Flush - Exam General Appearance: NAD, awake alert Eye: PERRL, anicteric sclera ENT: normocephalic atraumatic, moist mucosa Neck: supple, no lymphadenopathy Heart: RRR, normal peripheral pulses Respiratory: CTAB, no wheezes, no rales, no ronchi, normal chest expansion Gastrointestinal: soft, non-tender, non-distended, normal bowel sounds, no guarding, no rigidity Extremities - other findings: swelling of right knee, bruising on lateral aspect, painful ROM Skin: no rashes Neurological - other findings: Right arm/leg weakness, able to close hand but unable to squeeze Musculoskeletal: normal tone Psychiatric: normal affect, normal behavior, A&O x 3 Hosp A/P (1) Right sided weakness Code(s): R53.1 - WEAKNESS Status: Acute (2) Chest pain Code(s): R07.9 - CHEST PAIN, UNSPECIFIED Status: Acute (3) Syncope and collapse Code(s): R55 - SYNCOPE AND COLLAPSE Status: Acute (4) Right knee pain Code(s): M25.561 - PAIN IN RIGHT KNEE Status: Acute (5) DM2 (diabetes mellitus, type 2) Status: Chronic Qualifiers: Diabetes mellitus complication status: with hyperglycemia (6) Hypertension Code(s): I10 - ESSENTIAL (PRIMARY) HYPERTENSION Status: Chronic (7) Morbid obesity with BMI of 40.0-44.9, adult Code(s): E66.01 - MORBID (SEVERE) OBESITY DUE TO EXCESS CALORIES; Z68.41 - BODY MASS INDEX [BMI]40.0-44.9, ADULT Status: Chronic (8) Seizure disorder Code(s): G40.909 - EPILEPSY, UNSP, NOT INTRACTABLE, WITHOUT STATUS EPILEPTICUS Status: Chronic - Plan Right sided weakness: CVA rule out (Carotid US done- unremarkable, CT head- without acute abnormalities) Echo and MRI pending Neuro consulted Underoing EEG at present PT/OT consulted Continue Aspirin and statin Chest pain: Resolved, ACS rule out (CTA negative for PE, normal troponins) Cardiac monitoring Stress test ordered Syncope/Collapse: Echo pending Orthostatic BPs UA/Ucx, UDS Right knee pain: Joint effusion seen on Xray Ortho consult, given severe pain and on Eliquis Type 2 DM: Continue sliding scale Consistent carb diet ordered Hypertension: Continue to monitor Hold BP meds, given systolic BP of 120s. Seizure disorder: Undergoing EEG Anxiety/Depression: Home meds restarted Hypothyroidism: Levothyroxine restarted DVT Prophylaxis: Already on anticoagulation GI Prophlaxis: Famotidine 20 mg PO BID CODE STATUS: FULL ADDENDUM: Patient refusing to take her Eliquis this morning due to being on her menses for fear she will subsequently bleed heavily. Pending ortho eval for ?hemarthrosis, if cleared will start Lovenox 1 mg/kg for hx of RLE DVT
[2020-02-14] MEDS ORDERED: Non-Formulary Item 1 EACH (Levothyroxine Sodium [Levothyroxine] 25 MCG Capsule) PO SCH (09:00)
[2020-02-14] MEDS ORDERED: Apixaban 5 MG TAB PO SCH (09:00)
[2020-02-14] MEDS: Famotidine 20 MG TAB PO SCH ×2 (09:41→20:24)
[2020-02-14] MEDS: Aspirin Chewable 81 MG TAB PO SCH (09:41)
[2020-02-14] MEDS: Apixaban 5 MG TAB PO SCH ×2 (09:41→10:05)
[2020-02-14] MEDS ORDERED: Heparin 25,000 units/D5W 500 ML IVPB SCH (10:45)
[2020-02-14] MEDS ORDERED: Heparin 10,000 UNITS/ 10 ML VIAL SLOW IVP SCH (10:45)
[2020-02-14] MEDS ORDERED: Lorazepam 1 MG TAB PO SCH (10:45)
--- NOTE | 2020-02-14 10:56 | PDOC.EEG ---
Neurology EEG Report - Report Report: This EEG was performed using 24 channel [employer] video EEG machine with 24 disc electrodes. This was an extended 2 hours 5 minutes of inpatient video EEG recording. Digital analysis of the EEG was done for spike and seizure detection which revealed no abnormalities. Background: The posterior background rhythm is 9-10 Hz. The posterior background rhythm attenuates with eye opening and enhances with eye closure. Hyperventilation: Not performed. Photic Stimulation: No significant response. Sleep: Drowsiness is observed. EEG Diagnosis: Normal awake and drowsy EEG.
[2020-02-14 11:13] LABS: Bacteria/HPF None Seen HPF (None Seen); Bilirubin Negative (Negative); Blood, Urine 3+ (Negative); Clarity Turbid (Clear); Glucose, Urine (Dipstick) Normal (Negative); Ketone, Urine Negative (Negative); Leukocyte 250 Leu/uL (Negative); Nitrite Negative (Negative); Protein, Urine (Dipstick) 10 mg/dL (Neg-Trace); RBC/HPF Greater than 50 HPF (0-3); Specific Gravity, Urine 1.021 (1.002-1.036); Urobilinogen Normal mg/dL (Less than 2); WBC/HPF 21-50 HPF (0-3); pH, Urine 6.5 (5.0-9.0)
[2020-02-14 11:21] LABS: Urine Culture Reflex No No
[2020-02-14] MEDS ORDERED: Enoxaparin Sodium 80 MG/0.8 ML SYRINGE SC SCH ×2 (11:45→21:00)
[2020-02-14 12:26] LABS: Amphetamine Not Detected (NotDetected); Barbiturates Screen Not Detected (NotDetected); Benzodiazepine Screen Not Detected (NotDetected); Cocaine Metabolite Screen Not Detected (NotDetected); Medtox Control Line Valid? VALID (VALID); Medtox Reader # READER 4; Methadone Not Detected (NotDetected); Methamphetamine Not Detected (NotDetected); Opiate Screen Not Detected (NotDetected); Oxycodone Screen Not Detected (NotDetected); Phencyclidine (PCP) Not Detected (NotDetected); THC/Cannabinoid Screen Not Detected (NotDetected); Tricyclic Screen Not Detected (NotDetected)
[2020-02-14] MEDS ORDERED: Enoxaparin Sodium 120 MG/0.8 ML SYRINGE SC SCH (12:30)
--- NOTE | 2020-02-14 14:08 | CON ---
DATE OF CONSULTATION: 02/14/2020 REQUESTING PHYSICIAN: NETO Oropeza and Keke Zavala MD CONSULTING PHYSICIAN: Dr. Kenneth Multani. REASON FOR CONSULTATION: Right knee pain after fall. BRIEF CLINICAL HISTORY: Kenna is a 45-year-old female who was convalescing at the [facility] from a revision right total knee arthroplasty done by Dr. Moe in November of 2019. She was doing relatively well, working with therapy when she had an episode of what sounds like syncope which caused her to fall while standing and walking with therapy. The patient remembers that she blacked out and she did fall resulting in an injury to the right knee. She has been admitted by our medicine team and is currently undergoing etiology of the syncope to include cardiogenic and neurological workup. Our service has been consulted for evaluation of the right knee, which is uncomfortable and painful with radiographs which demonstrate what appears to be an effusion in the suprapatellar pouch. Coincidentally, the patient is on Eliquis for what was noted to be a deep vein thrombosis postoperatively. She did not have any knee pain prior to the fall and she was convalescing very well, making progress appropriately. Pain is relieved with rest and she appears comfortable. She denies any fever, chills, nausea, vomiting, or prodromal symptoms. She denies any progression of pain and she has not had significant discomfort within the last couple of weeks. By radiograph, it appears to be a stemmed total constrained prosthesis. Cement mantle looks good. There was no evidence of loosening either around the prosthesis and there is no evidence of fracture. Laboratory; white blood cell count today is 4.8. She has had no evidence or symptoms of infection otherwise. PHYSICAL EXAMINATION: Visual inspection of the right knee demonstrates her to have some bruising on the medial joint line with a little bit of tenderness diffusely. Palpation also reveals discomfort in and around the patella as well as the patella gutters and medial and lateral joint lines. She can straight leg raise and she can push against gravity. Quadriceps appears to be intact. The capsule is tense, but there are no extra capsular problems. Normal exam is otherwise noted. Range of motion actively is from full extension to approximately 40 degrees of flexion. She is neurovascularly intact. There is no malrotation. IMAGING STUDIES: Four views of right knee demonstrates a stemmed prosthesis both proximally and distally with good cement mantle and fixation. It appears to be a total constrained joint with a long central post and cruciate sacrificing construct with variable angle stem on the tibia. No fractures were identified, but there is a suprapatellar effusion noted on lateral view. IMPRESSION: I suspect that the patient has an intracapsular hematoma which is traumatic in origin from the fall in which accounts for most of her pain. I have a low suspicion for an infectious etiology or a fracture at this point that is not visualized on radiograph. Periprosthetic fractures in these cases were very rare if they are not determined on plain radiographs. PLAN: 1. I spoke by phone with Dr. Moe to make him aware of his patient's status and examination and findings. He is comfortable with her convalescing here and we will continue to follow and begin weightbearing as tolerated and slowly progress and I will serially examined her to see if she progresses or regresses. If the patient has regression, then I will call Dr. Moe back and have him come visit with the patient and assume care. Otherwise, if she continues to progress, he will see her as an outpatient. We will continue to let her bear weight progressively and continue her rehabilitation. As far as the Eliquis or the anticoagulations are concerned, I believe her hematoma has probably reached tamponade and is no longer huge problem other than discomfort. 2. Recheck the patient tomorrow. Weightbearing as tolerated. Job ID: [id number]
--- NOTE | 2020-02-14 14:34 | CON ---
NEUROLOGY CONSULTATION DATE OF CONSULTATION: 02/14/2020 REASON FOR CONSULTATION: Right-sided weakness and paresthesias. HISTORY OF PRESENT ILLNESS: Ms. Kenna De Leon is a 45-year-old female with medical history significant for coronary artery disease, congestive heart failure, type 2 diabetes mellitus, hypothyroidism, seizure disorder, sleep apnea, asthma, anxiety, depression, migraines, and gout, presented with right-sided weakness and paresthesias. Per patient, she presented to the emergency department after she collapsed while undergoing physical therapy at the [facility]. Per the patient, she had severe substernal pain which she rates 10/10 in severity and the next thing she realized that she blacked out and fell on the floor. The patient when she woke up, she still had pain and developed dizziness, headache with mild weakness and numbness of the right side of the body. She also has reduced sensation on the right side of the face. The patient denies any nausea, vomiting, double vision, blurred vision, vertigo, recent illness, cough or recent exposure to COVID-19. In the emergency room, she received 3 sprays of nitroglycerin and aspirin and admitted for stroke workup. Head CT was done in the emergency room, which was negative for acute intracranial pathology. REVIEW OF SYSTEMS: All systems reviewed and were negative except the pertinent positives and negatives mentioned in the HPI. PAST MEDICAL HISTORY: Coronary artery disease, congestive heart failure, type 2 diabetes mellitus, hypothyroidism, hypertension, seizure disorder, sleep apnea, uses CPAP, asthma, right lower extremity DVT, on Eliquis, anxiety, depression, migraines, gout. PAST SURGICAL HISTORY: Right wrist surgery, left knee replacement, revision of the right total knee arthroplasty in November 2019, SOCIAL HISTORY: The patient lives with the family. Denies smoking, alcohol, illegal drug use. She mobilizes with the help of a cane. FAMILY HISTORY: No family history of stroke. ALLERGIES: IBUPROFEN, TRAMADOL. HOME MEDICATIONS: 1. Lisinopril 10 mg daily. 2. Doxycycline 100 mg p.o. b.i.d. 3. Atorvastatin 10 mg p.o. at bedtime. 4. Metformin 500 mg p.o. b.i.d. 5. Levothyroxine 25 mcg p.o. daily. 6. Symbicort. 7. Aspirin 81 mg daily. 8. Prednisone 50 mg daily. 9. Eliquis 5 mg p.o. b.i.d. 10. Albuterol inhaler. 11. Tylenol with Codeine No.3. Vital Signs & Weight: Vital Signs (12 hours) Temp Pulse Resp BP Pulse Ox 02/14/20 07:46 97.7 F 80 16 128/96 H 96 02/14/20 04:00 98.3 F 75 16 127/79 97 02/13/20 23:47 98.1 F 86 17 132/71 98 Weight Weight 292 lb 11.2 oz Additional Labs: Accuchecks 02/13/20 19:55 POC Glucose 131 H Active Medications Generic Name Dose Route Start Last Admin Trade Name Freq PRN Reason Stop Dose Admin Atorvastatin Calcium 40 mg 02/13/20 21:00 02/13/20 23:40 Atorvastatin Calcium 40 Mg Tab PO 40 mg HS DOMINIK Administration Famotidine 20 mg 02/13/20 21:00 02/13/20 23:40 Famotidine 20 Mg Tab PO 20 mg BID DOMINIK Administration Sodium Chloride 10 ml 02/13/20 17:16 02/13/20 23:40 Flush - Normal Saline 10 Ml Syringe IVF 10 ml Q12HR PRN Administration Saline Flush PHYSICAL EXAMINATION General Appearance: NAD, awake alert Eye: PERRL, anicteric sclera ENT: normocephalic atraumatic, moist mucosa Neck: supple, no lymphadenopathy Heart: RRR, normal peripheral pulses Respiratory: CTAB, no wheezes, no rales, no ronchi, normal chest expansion Gastrointestinal: soft, non-tender, non-distended, normal bowel sounds, no guarding, no rigidity Extremities - other findings: swelling of right knee, bruising on lateral aspect, painful ROM Skin: no rashes Neurological - Mental status, the patient is alert and oriented to person, place, and time. Speech is clear. Motor, muscle tone and bulk are normal. Strength, 4+/5 in the right upper and lower extremity, 5/5 in the left upper and lower extremities. Sensory, decreased sensation to light touch in the right upper and lower extremities. Cranial nerves 2 to 12 intact except 5. Decreased sensation in the V1, V2, V3 distribution on the right. Cerebellar, finger-nose testing intact. Right pronator drift. Gait deferred due to patient's safety reason. DATA REVIEWED: I reviewed the CT scan which was negative for acute intracranial pathology. ASSESSMENT AND PLAN: (1) Right sided weakness Code(s): R53.1 - WEAKNESS Status: Acute (2) Chest pain Code(s): R07.9 - CHEST PAIN, UNSPECIFIED Status: Acute (3) Syncope and collapse Code(s): R55 - SYNCOPE AND COLLAPSE Status: Acute (4) Right knee pain Code(s): M25.561 - PAIN IN RIGHT KNEE Status: Acute (5) DM2 (diabetes mellitus, type 2) Status: Chronic Qualifiers: Diabetes mellitus complication status: with hyperglycemia (6) Hypertension Code(s): I10 - ESSENTIAL (PRIMARY) HYPERTENSION Status: Chronic (7) Morbid obesity with BMI of 40.0-44.9, adult Code(s): E66.01 - MORBID (SEVERE) OBESITY DUE TO EXCESS CALORIES; Z68.41 - BODY MASS INDEX [BMI]40.0-44.9, ADULT Status: Chronic (8) Seizure disorder Code(s): G40.909 - EPILEPSY, UNSP, NOT INTRACTABLE, WITHOUT STATUS EPILEPTICUS Status: Chronic Ms. De Leon is a 45-year-old female with multiple comorbidities, presented with acute chest pain and syncope while undergoing rehab. She also had right-sided weakness with right-sided facial paresthesias, most likely stroke. Consider MRI of the brain to rule out acute intracranial process. Increase to full dose aspirin and continue high-intensity statin for secondary stroke prevention. 2D echo to evaluate for left ventricular ejection fraction. Carotid Dopplers to rule out hemodynamically significant stenosis. Telemetry to rule out arrhythmias. Permissive control of blood pressure at this time. Strict control of blood glucose. PT/OT/Speech. EEG to rule out cortical irritability. Continue Eliquis for secondary stroke prevention and right lower extremity DVT. Check hemoglobin A1c, fasting lipid panel and TSH. Neuro checksevery 4 hours. Continue medical management per primary team. We will continue to follow. Thank you for the consult. Job ID: [id number] [email or web address]
[2020-02-14 16:43] LABS: Hemoglobin 11.8 g/dL (12.0-16.0); Platelet Count 292 thou/uL (130-400)
--- NOTE | 2020-02-14 18:37 | CON ---
DATE OF CONSULTATION: 02/14/2020 INDICATION FOR CONSULTATION: A 45-year-old female with syncope. HISTORY OF PRESENT ILLNESS: This very unfortunate 45-year-old female was in outpatient rehab. When she was exercising, she felt a little lightheaded and then before she could even call the durability technician, she actually had a rica syncopal episode and apparently was out just for a few seconds. She has not had any previous syncope in the past. She does see and follow up routinely with Dr. Robertson in [facility]. She underwent cardiac catheterization in the past, was found to have only mild coronary artery disease or plaque, and since that time has been doing quite well. She had an echocardiogram performed today, which shows a normal ejection fraction with mild mitral valve regurgitation, otherwise no significant abnormalities noted on the echocardiogram. She does have history of depression, migraines, anxiety. She has a history of seizure disorder, but this did not appear to be a seizure. She has type 2 diabetes as well as asthma. At this time, she is doing quite well. She has had no other symptoms. She has had no arrhythmias since being here and no significant bradycardia. She had a CT scan done in the emergency room, which showed no acute intracranial pathology. REVIEW OF SYSTEMS: A 12-point review of systems is unremarkable except what is noted in the history of present illness. PAST MEDICAL HISTORY: Significant for mild coronary artery disease. She has a history of congestive heart failure, however, ejection fraction appears to be normal. She has type 2 diabetes, hypothyroidism, hypertension, history of seizure disorder, sleep apnea, asthma, right lower extremity DVT. She has anxiety and depression. She has migraines and gout. She takes, I believe, Eliquis for her DVT and she also uses a CPAP mask for her sleep apnea. She has had right wrist surgery, left knee replacement, and right total knee arthroplasty in November 2019. SOCIAL HISTORY: She lives with her family. She has no alcohol or tobacco abuse. FAMILY HISTORY: Unremarkable for any early heart disease or CVAs in the past. ALLERGIES: SHE IS ALLERGIC TO TRAMADOL AND IBUPROFEN. MEDICATIONS: At home include: 1. Lisinopril. 2. Doxycycline. 3. Atorvastatin. 4. Metformin. 5. Levothyroxine. 6. Symbicort. 7. Aspirin. 8. Prednisone. 9. Eliquis. 10. Albuterol inhaler. 11. Tylenol with codeine No. 3. PHYSICAL EXAMINATION: GENERAL: Reveals a well-developed, well-nourished female, who is in no acute distress. VITAL SIGNS: Stable. HEENT: Shows the head to be normocephalic and atraumatic. Carotid pulses are present. There were no bruits noted. CHEST: Clear to auscultation without rales, rhonchi, or wheezing. CARDIOVASCULAR: Reveals a regular rate and rhythm with normal S1, S2. There is no S3 or S4. There were no significant murmurs, heaves, thrills, bruits, or rubs. ABDOMEN: Shows morbid obesity. Positive bowel sounds are present. I cannot elicit any tenderness or organomegaly. EXTREMITIES: Show no clubbing, cyanosis, or edema. Pedal pulses are present. NEUROLOGIC: She appears to be intact. LABORATORY DATA: Shows a WBC of 4.8, hemoglobin was 11.8, hematocrit was 35, platelet count was 292,000. Sodium was 136, potassium 3.8, BUN was 10, creatinine 0.73, blood sugar was 114. Her triglycerides were 249, LDL was 88. Her TSH was elevated at 13.8. Urinalysis had only a few wbcs. Her EKG shows a normal sinus rhythm with no acute abnormalities, appears to be a normal EKG. IMPRESSION: 1. A 45-year-old female with syncope of uncertain etiology. She has a normal ejection fraction. No obvious arrhythmias. This could be due to hypotension. She also said at the time of the syncope, her blood sugar was in the 70s, but she said the blood pressure was elevated, so based on the uncertainty of the indication of the syncopal episode, I would suggest she have a 30-day monitor applied, and if there is no syncope noted in 30 days, we could consider also implanting a LINQ implantable loop recorder. At this time, we will send her home with an event monitor. I do not see any other significant abnormalities and no indication for further cardiac workup as far as stress testing is concerned. 2. History of seizure disorder. Does not appear that this is a seizure. 3. Type 2 diabetes, which is being dealt with by the primary care service. 4. Hypothyroidism. This is also being dealt with by the primary care service. 5. Mild coronary artery disease, which is stable at this time. There is no indication that she needs any stent placement. According to her, she only had mild plaque and her cardiac catheterization was not too long ago and she denied any chest pain. We will be more than happy to follow her with you through her hospital course, but would suggest a 30-day event monitor, and once this is applied, then she could actually be discharged to home from a cardiac standpoint. Job ID: [id number]
[2020-02-14] MEDS: Enoxaparin Sodium 120 MG/0.8 ML SYRINGE SC SCH (20:23)
[2020-02-14] MEDS: Atorvastatin Calcium 40 MG TAB PO SCH (20:24)
[2020-02-15] MEDS ORDERED: Levothyroxine Sodium 25 MCG TAB PO SCH (06:00)
[2020-02-15 08:18] LABS: #Eosinphils 0.1 thou/uL (0.0-0.7); #Monocytes 0.3 thou/uL (0.11-0.59); #Neutrophils 2.3 thou/uL (1.40-6.50); %Basophils 0.3 % (0.0-1.0); %Eosinophils 2.4 % (0.0-10.0); %Monocytes 6.7 % (0.0-10.0); %Neutrophils 47.5 % (42.0-75.0); Hemoglobin 11.8 g/dL (12.0-16.0); Mean Corpuscular HGB CONC 32.8 g/dL (32.0-36.0); Mean Corpuscular Hemoglobin 28.3 pg (27.0-31.0); Mean Corpuscular Volume 86.2 fL (78.0-98.0); Mean Platelet Volume 6.4 fL (7.4-10.4); Platelet Count 287 thou/uL (130-400); RBC Distribution Width 12.6 % (11.5-14.5); Red Blood Cell (RBC) Count 4.16 mill/uL (4.20-5.40); White Blood Cell (WBC) Count 4.7 thou/uL (4.8-10.8)
[2020-02-15 08:37] LABS: Anion Gap 13 mmol/L (10-20); BUN (Urea Nitrogen) 10 mg/dL (7.0-18.7); Calc. Creatinine Clearance 208 mL/min (70-130); Calcium 8.7 mg/dL (7.8-10.44); Carbon Dioxide 24 mmol/L (22-29); Chloride 104 mmol/L (98-107); Glucose 119 mg/dL (70-105); Magnesium 2.1 mg/dL (1.6-2.6); Potassium 4.3 mmol/L (3.5-5.1); Sodium 137 mmol/L (136-145)
[2020-02-15] MEDS: Famotidine 20 MG TAB PO SCH (10:03)
[2020-02-15] MEDS: Aspirin Chewable 81 MG TAB PO SCH (10:04)
[2020-02-15] MEDS: Enoxaparin Sodium 120 MG/0.8 ML SYRINGE SC SCH (10:04)
[2020-02-15 10:48] VITALS: BP 140/94; TEMP 97.9
--- NOTE | 2020-02-15 12:07 | MRI ---
MRI brain noncontrast HISTORY: TIA. FINDINGS: There is no evidence of acute intracranial hemorrhage or infarct. The ventricles appear nor mal in size, shape and position. There is no mass effect or shift of midline structures. Appropriate flow voids at the brain base. IMPRESSION : No abnormalities are demonstrated.
--- NOTE | 2020-02-15 14:52 | PRG ---
DATE OF SERVICE: SUBJECTIVE: Kenna is a 45-year-old female. We saw in consult for right knee pain after a fall. She is doing relatively well. She is ambulating 230 feet. She is still weightbearing as tolerated. She has no amplification of pain. She has had no change in status of the knee. I reviewed x-rays again, no evidence of fracture, but a moderately-sized suprapatellar hemarthrosis appreciated. IMPRESSION: Right knee intracapsular hematoma, otherwise with stable hardware. No evidence of loosening or periprosthetic fracture. PLAN: The patient will follow up with Dr. Moe about a week or two after discharge and for now, we will sign off. No further orthopedic intervention is recommended. Job ID: [id number]
--- NOTE | 2020-02-15 15:01 | PDOC.NEUPN ---
- Subjective Encounter Date: 02/15/20 Subjective: Ms. webster feels better today and denies any new complaint in the last 24 hours - Objective Vital Signs & Weight: Vital Signs (12 hours) Temp Pulse Resp BP BP Pulse Ox 02/15/20 10:47 97.9 F 87 18 140/94 H 98 02/15/20 08:12 98.0 F 76 16 131/85 99 02/15/20 04:00 97.4 F L 75 18 129/98 H 99 Weight Weight 292 lb 11.2 oz I&O: 02/14/20 02/15/20 02/16/20 06:59 06:59 06:59 Intake Total 960 Balance 960 Result Diagrams: 02/15/20 07:50 02/15/20 07:50 Additional Labs: Accuchecks 02/15/20 02/15/20 02/14/20 10:51 05:36 20:55 POC Glucose 100 112 H 103 H Radiology Reviewed by me: Yes EKG Reviewed by me: Yes ROS - Review of Systems Constitutional: denies: fever, chills, sweats, weakness, malaise, other Eyes: denies: pain, vision change, conjunctivae inflammation, eyelid inflammati on, redness, other ENT: denies: ear pain, ear discharge, nose pain, nose discharge, nose congestion, mouth pain, mouth swelling, throat pain, throat swelling, other Respiratory: denies: cough, dry, shortness of breath, hemoptysis, SOB with excertion, pleuritic pain, sputum, wheezing, other Gastrointestinal: denies: nausea, vomiting, abdominal pain, diarrhea, constipation, melena, hematochezia, other Genitourinary: denies: dysuria, frequency, incontinence, hematuria, retention, other Skin: denies: rash, lesions, amadou, bruising, other All Systems: All other systems reviewed; all pertinent +/- noted in HPI/Subj - Medication Medications: Active Medications Generic Name Dose Route Start Last Admin Trade Name Freq PRN Reason Stop Dose Admin Acetaminophen 650 mg 02/13/20 17:16 02/14/20 20:21 Acetaminophen 325 Mg Tab PO 650 mg Q4H PRN Administration Headache/Fever/Mild Pain (1-3) Aspirin 81 mg 02/14/20 09:00 02/15/20 10:04 Aspirin Chewable 81 Mg Tab PO 81 mg DAILY DOMINIK Administration Atorvastatin Calcium 40 mg 02/13/20 21:00 02/14/20 20:24 Atorvastatin Calcium 40 Mg Tab PO 40 mg HS DOMINIK Administration Enoxaparin Sodium 120 mg 02/14/20 21:00 02/15/20 10:04 Enoxaparin Sodium 120 Mg/0.8 Ml Syringe SC 120 mg 0900,2100 DOMINIK Administration Famotidine 20 mg 02/13/20 21:00 02/15/20 10:03 Famotidine 20 Mg Tab PO 20 mg BID DOMINIK Administration Levothyroxine Sodium 25 mcg 02/15/20 06:00 02/15/20 06:10 Levothyroxine Sodium 25 Mcg Tab PO 25 mcg 0600 DOMINIK Administration Lorazepam 1 mg 02/14/20 10:45 02/15/20 10:49 Lorazepam 1 Mg Tab PO 1 mg WILLCALL DOMINIK Administration Sodium Chloride 10 ml 02/13/20 17:16 02/14/20 20:23 Flush - Normal Saline 10 Ml Syringe IVF 10 ml Q12HR PRN Administration Saline Flush - Exam General Appearance: awake alert Eye: PERRL ENT: normocephalic atraumatic Neck: supple Respiratory: CTAB Cardiovascular: RRR Gastrointestinal: soft Extremities: no cyanosis Skin: normal turgor Neurological: no new deficit Musculoskeletal: normal tone, normal strength, no muscle wasting PSYCH: normal affect, normal behavior, A&O x 3 Results - Labs Result Diagrams: 02/15/20 07:50 02/15/20 07:50 Lab results: WBC 4.7 thou/uL (4.8-10.8) L 02/15/20 07:50 Hgb 11.8 g/dL (12.0-16.0) L 02/15/20 07:50 Hct 35.8 % (36.0-47.0) L 02/15/20 07:50 MCV 86.2 fL (78.0-98.0) 02/15/20 07:50 Plt Count 287 thou/uL (130-400) 02/15/20 07:50 Neutrophils % 47.5 % (42.0-75.0) 02/15/20 07:50 Sodium 137 mmol/L (136-145) 02/15/20 07:50 Potassium 4.3 mmol/L (3.5-5.1) 02/15/20 07:50 Chloride 104 mmol/L (98-107) 02/15/20 07:50 Carbon Dioxide 24 mmol/L (22-29) 02/15/20 07:50 BUN 10 mg/dL (7.0-18.7) 02/15/20 07:50 Creatinine 0.73 mg/dL (0.6-1.1) 02/15/20 07:50 Glucose 119 mg/dL (70-105) H 02/15/20 07:50 Calcium 8.7 mg/dL (7.8-10.44) 02/15/20 07:50 Total Bilirubin 0.3 mg/dL (0.2-1.2) 02/13/20 15:39 AST 31 U/L (5-34) 02/13/20 15:39 ALT 24 U/L (8-55) 02/13/20 15:39 Alkaline Phosphatase 99 U/L (40-110) 02/13/20 15:39 Creatine Kinase 154 U/L (29-168) 02/13/20 15:39 Troponin I 0.021 ng/mL (< 0.028) 02/13/20 21:36 Serum Total Protein 7.8 g/dL (6.0-8.3) 02/13/20 15:39 Albumin 4.0 g/dL (3.5-5.0) 02/13/20 15:39 Lipase 20 U/L (8-78) 02/13/20 15:39 Urine Ketones Negative mg/dL (Negative) 02/14/20 10:44 Urine Blood 3+ (Negative) A 02/14/20 10:44 Urine Nitrite Negative (Negative) 02/14/20 10:44 Ur Leukocyte Esterase 250 Li/uL (Negative) A 02/14/20 10:44 Urine RBC Greater than 50 HPF (0-3) A 02/14/20 10:44 Urine WBC 21-50 HPF (0-3) A 02/14/20 10:44 Ur Squamous Epith Cells 4-6 HPF (0-3) A 02/14/20 10:44 Urine Bacteria None Seen HPF (None Seen) 02/14/20 10:44 - Radiology Interpretation MRI - head Additional Comment: MRI of the brain reviewed which was negative for acute intracranial pathology PN A/P (1) TIA (transient ischemic attack) Code(s): G45.9 - TRANSIENT CEREBRAL ISCHEMIC ATTACK, UNSPECIFIED Status: Acute (2) Chest pain Code(s): R07.9 - CHEST PAIN, UNSPECIFIED Status: Acute (3) Right knee pain Code(s): M25.561 - PAIN IN RIGHT KNEE Status: Acute (4) Right sided weakness Code(s): R53.1 - WEAKNESS Status: Acute (5) Syncope and collapse Code(s): R55 - SYNCOPE AND COLLAPSE Status: Acute (6) DM2 (diabetes mellitus, type 2) Status: Chronic Qualifiers: Diabetes mellitus complication status: with hyperglycemia (7) Hypertension Code(s): I10 - ESSENTIAL (PRIMARY) HYPERTENSION Status: Chronic (8) Morbid obesity with BMI of 40.0-44.9, adult Code(s): E66.01 - MORBID (SEVERE) OBESITY DUE TO EXCESS CALORIES; Z68.41 - BODY MASS INDEX [BMI]40.0-44.9, ADULT Status: Chronic (9) Seizure disorder Code(s): G40.909 - EPILEPSY, UNSP, NOT INTRACTABLE, WITHOUT STATUS EPILEPTICUS Status: Chronic - Plan Daily Plan: PT/OT, speech therapy, DVT proph w/SCDs Ms. webster is a 45-year-old female with medical history significant for, morbid obesity, hypertension, diabetes, and seizure disorder presented with an episode of syncope with collapse, and strokelike symptoms which were now improved. MRI of the brain reviewed which was negative for acute intracranial pathology. Telemetry did not show any arrhythmias. Patient has been seen by cardiology for syncope and long-term cardiac monitoring is recommended to rule out arrhythmias. Neurochecks every 4 hours. Carotid Dopplers did not reveal hemodynamically significant stenosis. 2D echo showed left ventricular ejection fraction 55 to 60%. No thrombus or PFO . Continue aspirin and high intensity statin for secondary stroke prevention. Continue home medications. PT/OT/speech. Continue medical management per primary team. Plan discussed in detail with the patient and also with the primary attending Dr. Lowery.
--- NOTE | 2020-02-15 15:23 | EKG ---
Test Reason : Blood Pressure : / mmHG Vent. Rate : 081 BPM Atrial Rate : 081 BPM P-R Int : 156 ms QRS Dur : 080 ms QT Int : 380 ms P-R-T Axes : 058 033 019 degrees QTc Int : 441 ms Normal sinus rhythm Normal ECG Confirmed by FLORENCE GAN, BASIL (12), film and video editor SANTI RADER ([id number]) on 02/15/2020 3:23:28 PM Referred By: Confirmed By:BASIL HENRIQUEZ MD
--- NOTE | 2020-02-15 17:00 | PDOC.DS.DS ---
Provider - Provider Date of Admission: 02/15/20 13:15 Date of Discharge: 02/15/20 Admitting Provider: Keke Zavala MD Consultations: Cardiology, Neurology Primary Care Physician: Manisha Clayton MD Course - Hospital Course Hospital Course: Patient is 45-year-old female with diabetes mellitus type 2, coronary artery disease, hypertension and seizure disorder presented to the emergency room on 02/12 with chest discomfort followed by syncope and collapse while undergoing rehab. Upon awakening, she experienced right-sided weakness along with numbness. Please refer to the history and physical for further details. The patient was admitted to the stroke unit with above diagnosis. Her serial troponins remained negative. Telemetry monitoring was negative for significant arrhythmias. Echocardiogram showed ejection fraction of 55 to 60% with mild mitral regurgitation, mild tricuspid regurgitation with mild to moderate left atrial dilatation. Carotid Doppler was negative for hemodynamically significant stenosis in bilateral internal carotid artery. Her initial CT scan of the brain was negative for acute findings. CT angiogram of the chest was negative for pulmonary embolism. She underwent MRI of the brain that was negative for acute CVA. Patient was evaluated by neurology Dr. Ryan who recommended to continue home dose of aspirin along with statins. Patient was also evaluated by cardiology who recommended 30-day monitor. Patient was advised to contact her primary program paraprofessional on Monday to set this up. Patient has been cleared by cardiology for discharge. Due to recent knee surgery patient was also evaluated by orthopedic team who recommended no intervention. Final diagnosis: Chest discomfortacute coronary syndrome ruled out Syncope of unclear etiologyan outpatient event monitor recommended by cardiology (patient will contact her primary program paraprofessional on Monday) Right-sided weakness of unclear etiologystroke ruled out Right knee pain without any fractures or dislocationno new intervention per orthopedic Diabetes mellitus type 2 Hypertension Seizure disorder Anxiety Hypothyroidism History of DVT on anticoagulation Morbid obesity with a BMI 43.2 Chronic anemia probably due to nutritional deficiency Resuscitation Status: 02/13/20 17:16 Resuscitation Status Routine Co-Sign Provider: Resuscitation Status: FULL: Full Resuscitation - Labs Lab Results: 02/15/20 07:50 02/15/20 07:50 Abnormal Lab Results - Last 48 hrs 02/14/20 04:55: Triglycerides 249 H 02/14/20 04:55: RBC 3.77 L, Hgb 11.0 L, Hct 32.5 L, MPV 6.2 L 02/14/20 04:55: TSH 3rd Generation 13.8048 H 02/14/20 10:44: Urine Clarity Turbid A, Urine Blood 3+ A, Ur Leukocyte Esterase 250 A, Urine RBC Greater than 50 A, Urine WBC 21-50 A, Ur Squamous Epith Cells 4-6 A 02/14/20 16:22: Hgb 11.8 L, Hct 35.0 L 02/15/20 07:50: WBC 4.7 L, RBC 4.16 L, Hgb 11.8 L, Hct 35.8 L, MPV 6.4 L - Physical Exam Vitals: Vital Signs (12 hours) Temp Pulse Resp BP BP Pulse Ox 02/15/20 10:47 97.9 F 87 18 140/94 H 98 02/15/20 08:12 98.0 F 76 16 131/85 99 Weight Weight 292 lb 11.2 oz Physical Exam: The patient was seen and examined on the day of discharge. Plan - Discharge Medications Home Medications: Medication Instructions Recorded Confirmed Type Acetaminophen With Codeine 1 - 2 tab PO PRN PRN 02/14/20 02/14/20 History [Tylenol with Codeine #3] Albuterol Sulfate [Proair 2 puff INH PRN PRN 02/14/20 02/14/20 History Digihaler] Apixaban [Eliquis] 1 tab PO BID 02/14/20 02/14/20 History Aspirin [Ecotrin Low Strength] 1 tab PO DAILY 02/14/20 02/14/20 History Atorvastatin Calcium [Lipitor] 1 tab PO HS 02/14/20 02/14/20 History Budesonide-Formoterol [Symbicort 2 puff INH PRN PRN 02/14/20 02/14/20 History 80-4.5] Doxycycline Hyclate [Morgidox] 1 tab PO BID 02/14/20 02/14/20 History HYDROcodone/Acetaminophen [Chinquapin 1 tab PO PRN PRN 02/14/20 02/14/20 History 10-325 Tablet] Levothyroxine Sodium 1 tab PO DAILY 02/14/20 02/14/20 History [Levothyroxine] Lisinopril [Zestril] 10 mg PO DAILY 02/14/20 02/14/20 History Lisinopril/Hydrochlorothiazide 1 tab PO DAILY 02/14/20 02/14/20 History [Lisinopril-Hctz 10-12.5 mg Tab] Lisinopril/Hydrochlorothiazide 1 tab PO DAILY 02/14/20 02/14/20 History [Lisinopril-Hctz 10-12.5 mg Tab] Meloxicam [Mobic] 1 tab PO DAILY 02/14/20 02/14/20 History Sertraline HCl 1 tab PO DAILY 02/14/20 02/14/20 History Triamcinolone Acetonide [Kenalog 1 applic TOP DAILY 02/14/20 02/14/20 History 0.1% Cream] metFORMIN [Glucophage] 1 tab PO BID 02/14/20 02/14/20 History predniSONE 50 mg PO DAILY 02/14/20 02/14/20 History Allergies: ibuprofen Allergy (Intermediate, Verified 12/02/19 11:45) tramadol Allergy (Intermediate, Verified 12/02/19 11:45) peanuts Allergy (Severe, Uncoded 12/02/19 11:45) - Discharge Instructions Discharge Instructions:: No driving until cleared by MD 24 hr supervision. - Follow up Plan Referrals: Duong Robertson MD [MD Not on Staff] - 3 Days Manisha Clayton MD [Primary Care Provider] - 7 Days Roderick Pappas MD [Active] - 7 Days Roger Moe MD [Active] - 7 Days Disposition: HOME Quality - Care Measures CORE MEASURES:: N/A
--- NOTE | 2020-02-17 01:31 | PQF ---
CLINICAL DOCUMENTATION CLARIFICATION FORM: Dear : Adi Lowery Date / Time: 02/17/20 7560 Please exercise your independent, professional judgment in responding to the clarification form. Clinical indicators are provided on the bottom of this form for your review In your clinical opinion based on clinical findings below, can you please identify the etiology of Syncope if due to: [ ] TIA related to Carotid Stenosis [ ] TIA unspecified [ ] Mitral and Tricuspic stenosis [ x ] Other diagnosis - Syncope of unclear etiology. TIA unlikely per Neurology [ ] Unable to determine Physician Signature: Date/Time: For continuity of documentation, please document condition throughout progress notes and discharge summary. Thank You. To be completed by CDI/Coding staff for physician review: Present Clinical Indicators - Signs / Symptoms / Labs Results and Location in Medical Record [x] [x] Carotid Duplex Ultrasound: No Hemodynamically significant stenosis in the bilateral internal carotid arteries Imaging Dr Pal 02/12 [x] CT brain: No acute intracranial findings Imaging Dr Oliver 02/12 [x] MRI brain: No abnormalities are demonstrated Imaging Dr Ramon 02/14 [x] Echocardiogram: Mild mitral regurgitation. Mild tricuspid regurgitation Procedure Dr Urena 02/13 [x] BP 120/75, Pulse 78, Resp 16, Temp 98 Vital signs 02/16 [x] Presents right sided weakness and numbness H&P p1 02/12 Valdes PA-C [x] Pt states she blacked out H&P p1 02/12 Valdes PA-C [x] Syncope/Collapse, unclear secondary to severe onset of chest pain H&P p4 02/12 Valdes PA-C [x] TIA Neuro PN p5 Dr Ryan 02/14 Present Risk Factors Results and Location in Medical Record [x] CAD H&P p2 02/12 Valdes PA-C [x] CHF H&P p2 02/12 Valdes PA-C [x] Obesity H&P p2 02/12 Valdes PA-C [x] DM H&P p2 02/12 Valdes PA-C [x] Migraine H&P p2 02/12 Valdes PA-C [x] HTN H&P p2 02/12 Valdes PA-C [x] Seizure disorder H&P p2 02/12 Valdes PA-C Present Treatments Results and Location in Medical Record [x] Aspirin 81 mg oral APR 13 [x] IVF NS 1L APR 24 [x] Neuro consult Consult Zelda He 02/13 [x] Neuro check Consult Zelda He 02/13 [x] OT/PT Consult Zelda He 02/13 [x] Cardio consult Consult Dr Urena 02/13 CDS/User Experience Analyst Signature: Kim Marin Phone #: [phone] Date/Time: 02/17/20 0130 This is a permanent part of the Medical Record [facility]
== END 2020-02-15 15:26 | disposition home or self-care (01) | DRG 312 ==
LOC: ERS 15:15 → 2SE 17:41 → OBSVTOIN 02-15 13:15
PROVIDERS: ADMIT Internal Medicine; ATTEND Internal Medicine
DX: R55 Syncope and collapse (principal); Z68.41 Body mass index [BMI] 40.0-44.9, adult; Z20.822 Contact with and (suspected) exposure to COVID-19; R07.9 Chest pain, unspecified; R53.1 Weakness; E11.9 Type 2 diabetes mellitus without complications; G40.909 Epilepsy, unspecified, not intractable, without status epilepticus; F41.9 Anxiety disorder, unspecified; E03.9 Hypothyroidism, unspecified; D53.9 Nutritional anemia, unspecified; I08.1 Rheumatic disorders of both mitral and tricuspid valves; I65.23 Occlusion and stenosis of bilateral carotid arteries; R20.0 Anesthesia of skin; I25.10 Atherosclerotic heart disease of native coronary artery without angina pectoris; I50.9 Heart failure, unspecified; J45.909 Unspecified asthma, uncomplicated; F32.9 Major depressive disorder, single episode, unspecified; G43.909 Migraine, unspecified, not intractable, without status migrainosus; M10.9 Gout, unspecified; Z96.653 Presence of artificial knee joint, bilateral; E66.01 Morbid (severe) obesity due to excess calories; S80.01XA Contusion of right knee, initial encounter; W18.30XA Fall on same level, unspecified, initial encounter; I11.0 Hypertensive heart disease with heart failure; G47.30 Sleep apnea, unspecified; Z86.718 Personal history of other venous thrombosis and embolism; Z79.01 Long term (current) use of anticoagulants; Z87.892 Personal history of anaphylaxis; Z88.8 Allergy status to other drugs, medicaments and biological substances; Z79.899 Other long term (current) drug therapy; Z79.84 Long term (current) use of oral hypoglycemic drugs; Z79.890 Hormone replacement therapy; Z79.51 Long term (current) use of inhaled steroids; Z79.52 Long term (current) use of systemic steroids
CPT/HCPCS: 36415; 36416; 70450; 70551; 71045; 71275; 72050; 80048; 80053; 80061; 80306; 81001; 82550; 83690; 83735; 84443; 84484; 85025; 85730; 87635; 93005; 93306; 93880; 94760; 95712; 95816; 95819; 95957; 96372; 96374; 96375; G0378; J1200; J1644; J1650; J2765; Q9967; U0003

== ENCOUNTER 2020-06-29 10:34 | Emergency (ER) | payer MEDICARE, MEDICAID ==
[2020-06-29] MEDS ORDERED: Iopamidol-370 76% 500 ML 1 ML ONE (11:09)
[2020-06-29 11:21] LABS: #Eosinphils 0.2 thou/uL (0.0-0.7); #Monocytes 0.3 thou/uL (0.11-0.59); #Neutrophils 2.4 thou/uL (1.40-6.50); %Basophils 0.2 % (0.0-1.0); %Eosinophils 3.6 % (0.0-10.0); %Monocytes 5.7 % (0.0-10.0); %Neutrophils 49.4 % (42.0-75.0); Hemoglobin 11.7 g/dL (12.0-16.0); Mean Corpuscular HGB CONC 33.4 g/dL (32.0-36.0); Mean Corpuscular Hemoglobin 29.4 pg (27.0-31.0); Mean Platelet Volume 6.3 fL (7.4-10.4); Platelet Count 292 thou/uL (130-400); Red Blood Cell (RBC) Count 3.96 mill/uL (4.20-5.40); White Blood Cell (WBC) Count 4.8 thou/uL (4.8-10.8)
[2020-06-29 11:26] LABS: INR-International Normal Ratio 0.9; Prothrombin Time 12.7 sec (12.0-14.7)
[2020-06-29 11:33] LABS: ALT (SGPT) 30 U/L (8-55); AST (SGOT) 27 U/L (5-34); Albumin 3.8 g/dL (3.5-5.0); Alkaline Phosphatase 94 U/L (40-110); Anion Gap 14 mmol/L (10-20); BUN (Urea Nitrogen) 7 mg/dL (7.0-18.7); Bilirubin, Total 0.3 mg/dL (0.2-1.2); Calc. Creatinine Clearance 0 mL/min (70-130); Carbon Dioxide 27 mmol/L (22-29); Chloride 101 mmol/L (98-107); Globulin 4.2 g/dL (2.4-3.5); Glucose 164 mg/dL (70-105); Potassium 4.6 mmol/L (3.5-5.1); Sodium 137 mmol/L (136-145)
[2020-06-29] MEDS ORDERED: Ondansetron PF 4 MG/2 ML Vial ONE ×2 (11:47→12:17)
[2020-06-29 12:33] LABS: Bilirubin Negative (Negative); Blood, Urine Negative (Negative); Clarity Clear (Clear); Glucose, Urine (Dipstick) Normal (Negative); Ketone, Urine Negative (Negative); Leukocyte Negative Leu/uL (Negative); Nitrite Negative (Negative); Protein, Urine (Dipstick) Negative (Neg-Trace); Specific Gravity, Urine 1.026 (1.002-1.036); Urobilinogen Normal mg/dL (Less than 2)
[2020-06-29 12:37] LABS: Pregnancy Test - Urine (BHCG) Negative (Negative); Pregu Control Background? CLEAR/WHITE (CLR/WHITE); Pregu Control Bar Appear? YES (CONTROL BAR); Specific Gravity 1.026 (1.002-1.036)
== END 2020-06-29 13:39 | disposition home or self-care (01) ==
LOC: ERS 10:34
DX: R10.33 Periumbilical pain (principal); E11.9 Type 2 diabetes mellitus without complications; E03.9 Hypothyroidism, unspecified; I11.0 Hypertensive heart disease with heart failure; I50.9 Heart failure, unspecified; Z79.899 Other long term (current) drug therapy; Z79.82 Long term (current) use of aspirin; Z79.01 Long term (current) use of anticoagulants; Z86.718 Personal history of other venous thrombosis and embolism; M79.604 Pain in right leg
CPT/HCPCS: 36415; 74177; 80053; 81003; 81025; 83690; 85025; 85610; 96372; J0500; J2405; Q9967

== ENCOUNTER 2020-10-21 02:26 | Emergency (ER) | payer MEDICARE, MEDICAID, OTHER ==
[2020-10-21 03:09] LABS: #Basophils 0.1 thou/uL (0.0-0.2); #Eosinphils 0.2 thou/uL (0.0-0.7); #Lymphocytes 2.6 thou/uL (1.20-3.40); #Monocytes 0.6 thou/uL (0.11-0.59); %Basophils 1.1 % (0.0-1.0); %Eosinophils 3.4 % (0.0-10.0); %Lymphocytes 47.5 % (21.0-51.0); %Monocytes 10.3 % (0.0-10.0); %Neutrophils 37.8 % (42.0-75.0); Mean Corpuscular Hemoglobin 30.2 pg (27.0-31.0); Mean Corpuscular Volume 88.8 fL (78.0-98.0); Mean Platelet Volume 6.6 fL (7.4-10.4); Platelet Count 280 thou/uL (130-400); RBC Distribution Width 12.5 % (11.5-14.5); Red Blood Cell (RBC) Count 3.99 mill/uL (4.20-5.40); White Blood Cell (WBC) Count 5.4 thou/uL (4.8-10.8)
[2020-10-21 03:21] LABS: ALT (SGPT) 51 U/L (8-55); AST (SGOT) 42 U/L (5-34); Albumin 4.1 g/dL (3.5-5.0); Alkaline Phosphatase 72 U/L (40-110); Anion Gap 13 mmol/L (10-20); BUN (Urea Nitrogen) 15 mg/dL (7.0-18.7); Bilirubin, Total 0.2 mg/dL (0.2-1.2); Calc. Creatinine Clearance 0 mL/min (70-130); Calcium 9.7 mg/dL (7.8-10.44); Carbon Dioxide 26 mmol/L (22-29); Chloride 102 mmol/L (98-107); Globulin 4.2 g/dL (2.4-3.5); Glucose 104 mg/dL (70-105); Potassium 4.3 mmol/L (3.5-5.1); Protein, Total 8.3 g/dL (6.0-8.3); Sodium 137 mmol/L (136-145)
[2020-10-21 06:54] LABS: Troponin I Less than 0.010 ng/mL (< 0.028)
== END 2020-10-21 08:24 | disposition home or self-care (01) ==
LOC: ERS 02:26
DX: R07.89 Other chest pain (principal)
CPT/HCPCS: 36415; 71045; 80053; 84484; 85025; 93005

== ENCOUNTER 2021-01-29 14:40 | Outpatient (CLI) | payer MEDICARE, MEDICAID | END 2021-01-29 14:41 | disposition home or self-care (01) | LOC: SCSRAD 14:40 | PROVIDERS: ATTEND Nurse Practitioner Family | DX: M25.562 Pain in left knee (principal); M54.2 Cervicalgia; M17.12 Unilateral primary osteoarthritis, left knee | CPT/HCPCS: 72050 ==

== ENCOUNTER 2021-05-20 20:20 | Emergency (ER) | payer MEDICARE | END 2021-05-20 22:17 | disposition home or self-care (01) | LOC: ERS 20:20 | DX: L02.212 Cutaneous abscess of back [any part, except buttock and flank] (principal) | CPT/HCPCS: 99282 ==

== ENCOUNTER 2021-06-30 11:55 | Emergency (ER) | payer MEDICARE ==
[2021-06-30] MEDS ORDERED: hydrALAZINE 20 MG/ML VIAL ONE (12:21)
[2021-06-30 12:32] LABS: #Eosinphils 0.1 thou/uL (0.0-0.7); #Lymphocytes 2.1 thou/uL (1.20-3.40); #Monocytes 0.4 thou/uL (0.11-0.59); #Neutrophils 2.1 thou/uL (1.40-6.50); %Basophils 0.7 % (0.0-1.0); %Eosinophils 2.3 % (0.0-10.0); %Lymphocytes 44.4 % (21.0-51.0); %Monocytes 7.8 % (0.0-10.0); %Neutrophils 44.7 % (42.0-75.0); Hemoglobin 11.6 g/dL (12.0-16.0); Mean Corpuscular HGB CONC 33.5 g/dL (32.0-36.0); Mean Corpuscular Hemoglobin 30.4 pg (27.0-31.0); Mean Corpuscular Volume 90.8 fL (78.0-98.0); Platelet Count 273 thou/uL (130-400); RBC Distribution Width 12.1 % (11.5-14.5); Red Blood Cell (RBC) Count 3.82 mill/uL (4.20-5.40); White Blood Cell (WBC) Count 4.7 thou/uL (4.8-10.8)
[2021-06-30 12:44] LABS: BHCG - Serum Negative (NEGATIVE); Pregs Control Background? CLEAR/WHITE (CLR/WHITE); Pregs Control Bar Appear? YES (CONTROL BAR)
[2021-06-30 13:00] LABS: ALT (SGPT) 48 U/L (8-55); AST (SGOT) 40 U/L (5-34); Albumin 3.8 g/dL (3.5-5.0); Alkaline Phosphatase 91 U/L (40-110); Anion Gap 13 mmol/L (10-20); BUN (Urea Nitrogen) 7 mg/dL (7.0-18.7); Bilirubin, Total 0.5 mg/dL (0.2-1.2); Calc. Creatinine Clearance 0 mL/min (70-130); Calcium 9.2 mg/dL (7.8-10.44); Carbon Dioxide 26 mmol/L (22-29); Chloride 102 mmol/L (98-107); Globulin 4.2 g/dL (2.4-3.5); Glucose 140 mg/dL (70-105); Lipase 14 U/L (8-78); Potassium 4.1 mmol/L (3.5-5.1); Sodium 137 mmol/L (136-145)
[2021-06-30] MEDS ORDERED: Aspirin Chewable 81 MG TAB ONE (14:23)
== END 2021-06-30 15:11 | disposition short-term general hospital (02) ==
LOC: ERS 11:55
DX: R07.9 Chest pain, unspecified (principal); I11.0 Hypertensive heart disease with heart failure; I50.9 Heart failure, unspecified; E78.5 Hyperlipidemia, unspecified; I25.10 Atherosclerotic heart disease of native coronary artery without angina pectoris; E03.9 Hypothyroidism, unspecified; Z79.01 Long term (current) use of anticoagulants; Z79.82 Long term (current) use of aspirin; Z79.84 Long term (current) use of oral hypoglycemic drugs; Z79.899 Other long term (current) drug therapy
CPT/HCPCS: 71045; 71275; 74174; 80053; 83690; 83880; 84443; 84484; 84703; 85025; 93005; 94760; 96374; J0360

== ENCOUNTER 2022-02-16 21:40 | Emergency (ER) | payer OTHER, MEDICARE ==
[2022-02-17] MEDS ORDERED: Boostrix 0.5 ML (Tdap) VIAL (>/=7 yrs of age) ONE (00:17)
== END 2022-02-17 01:43 | disposition home or self-care (01) ==
LOC: ERS 21:40
DX: L03.114 Cellulitis of left upper limb (principal); I11.0 Hypertensive heart disease with heart failure; I50.9 Heart failure, unspecified; E11.9 Type 2 diabetes mellitus without complications; E03.9 Hypothyroidism, unspecified; Z23 Encounter for immunization
CPT/HCPCS: 36415; 85379; 90471; 90715; 93970

== ENCOUNTER 2022-03-31 11:11 | Outpatient (CLI) | payer OTHER, MEDICARE | END 2022-03-31 11:12 | disposition home or self-care (01) | LOC: BICRAD 11:11 | PROVIDERS: ATTEND Surgery | DX: M40.209 Unspecified kyphosis, site unspecified (principal); M47.814 Spondylosis without myelopathy or radiculopathy, thoracic region; M46.04 Spinal enthesopathy, thoracic region | CPT/HCPCS: 72072 ==

== ENCOUNTER 2022-04-03 04:04 | Emergency (ER) | payer OTHER ==
[2022-04-03] MEDS ORDERED: Fluorescein Opthalmic Strip ONE (04:24)
[2022-04-03] MEDS ORDERED: Proparacaine 0.5% Opth 15 ML BOT ONE (04:24)
== END 2022-04-03 06:40 | disposition home or self-care (01) ==
LOC: ERS 04:04
DX: S00.83XA Contusion of other part of head, initial encounter (principal); I11.0 Hypertensive heart disease with heart failure; I50.9 Heart failure, unspecified; E11.9 Type 2 diabetes mellitus without complications; E03.9 Hypothyroidism, unspecified; W25.XXXA Contact with sharp glass, initial encounter
CPT/HCPCS: 70486

== ENCOUNTER 2022-04-07 00:50 | Emergency (ER) | payer OTHER | END 2022-04-07 03:20 | disposition home or self-care (01) | LOC: ERS 00:50 | DX: R04.0 Epistaxis (principal); I11.0 Hypertensive heart disease with heart failure; I50.9 Heart failure, unspecified; E03.9 Hypothyroidism, unspecified; E11.9 Type 2 diabetes mellitus without complications | CPT/HCPCS: 99283 ==

== ENCOUNTER 2022-04-29 07:37 | Outpatient (CLI) | payer OTHER | END 2022-04-29 07:38 | disposition home or self-care (01) | LOC: NM 07:37 | PROVIDERS: ATTEND Orthopaedic Surgery | DX: T84.54XA Infection and inflammatory reaction due to internal left knee prosthesis, initial encounter (principal) | CPT/HCPCS: 78315; A9537 ==

== ENCOUNTER 2022-05-16 10:00 | Outpatient (CLI) | payer OTHER | END 2022-05-16 10:01 | disposition home or self-care (01) | LOC: NM 10:00 | PROVIDERS: ATTEND Orthopaedic Surgery | DX: T84.54XA Infection and inflammatory reaction due to internal left knee prosthesis, initial encounter (principal) | CPT/HCPCS: 78315; A9503 ==

== ENCOUNTER 2022-09-09 04:56 | Emergency (ER) | payer OTHER ==
[2022-09-09 05:26] LABS: #Eosinphils 0.2 thou/uL (0.0-0.7); #Monocytes 0.6 thou/uL (0.11-0.59); %Basophils 0.7 % (0.0-1.0); %Eosinophils 3.3 % (0.0-10.0); %Lymphocytes 36.1 % (21.0-51.0); %Monocytes 9.6 % (0.0-10.0); Hemoglobin 11.5 g/dL (12.0-16.0); Mean Corpuscular HGB CONC 32.9 g/dL (32.0-36.0); Mean Corpuscular Hemoglobin 28.8 pg (27.0-31.0); Mean Corpuscular Volume 87.5 fl (78.0-98.0); Platelet Count 243 10x3/uL (130-400); RBC Distribution Width 12.8 % (11.5-14.5); White Blood Cell (WBC) Count 6.1 10x3/uL (4.8-10.8)
[2022-09-09 05:52] LABS: ALT (SGPT) 52 U/L (8-55); AST (SGOT) 54 U/L (5-34); Albumin 4.1 g/dL (3.5-5.0); Alkaline Phosphatase 95 U/L (40-110); Anion Gap 14 mmol/L (10-20); BUN (Urea Nitrogen) 10 mg/dL (7.0-18.7); Bilirubin, Total 0.3 mg/dL (0.2-1.2); Calc. Creatinine Clearance 0 mL/min (70-130); Calcium 9.4 mg/dL (7.8-10.44); Carbon Dioxide 25 mmol/L (22-29); Chloride 102 mmol/L (98-107); Estimated GFR 98; Globulin 3.9 g/dL (2.4-3.5); Glucose 140 mg/dL (70-105); Lipase 18 U/L (8-78); Potassium 3.5 mmol/L (3.5-5.1); Sodium 137 mmol/L (136-145)
[2022-09-09] MEDS ORDERED: Iopamidol-370 76% 500 ML MDV (1 ML CHARGE) ONE (10:50)
== END 2022-09-09 09:48 | disposition home or self-care (01) ==
LOC: ERS 04:56
DX: R07.9 Chest pain, unspecified (principal); I11.0 Hypertensive heart disease with heart failure; I50.9 Heart failure, unspecified; E11.9 Type 2 diabetes mellitus without complications; Z79.82 Long term (current) use of aspirin
CPT/HCPCS: 36415; 71045; 71275; 80053; 83690; 83880; 84484; 85025; 93005; Q9967

== ENCOUNTER 2022-12-21 20:44 | Emergency (ER) | payer MEDICARE, OTHER ==
[~2022-12-21 20:44] MED LIST changes: +Iopamidol 370 76% 100 ML VIAL ONE; -Iopamidol-370 76% 500 ML 1 ML ONE
[2022-12-22 00:48] LABS: #Eosinphils 0.2 thou/uL (0.0-0.7); #Monocytes 0.6 thou/uL (0.11-0.59); #Neutrophils 2.3 thou/uL (1.40-6.50); %Basophils 0.8 % (0.0-1.0); %Eosinophils 3.4 % (0.0-10.0); %Lymphocytes 40.2 % (21.0-51.0); %Monocytes 10.8 % (0.0-10.0); %Neutrophils 44.4 % (42.0-75.0); Hematocrit 33.5 % (36.0-47.0); Hemoglobin 10.8 g/dL (12.0-16.0); Mean Corpuscular HGB CONC 32.2 g/dL (32.0-36.0); Mean Corpuscular Volume 89.8 fl (78.0-98.0); Mean Platelet Volume 9.1 fL (7.4-10.4); Platelet Count 263 10x3/uL (130-400); RBC Distribution Width 13.8 % (11.5-14.5); Red Blood Cell (RBC) Count 3.73 mill/uL (4.20-5.40); White Blood Cell (WBC) Count 5.3 10x3/uL (4.8-10.8)
[2022-12-22 00:49] LABS: BHCG - Serum Negative (NEGATIVE); Pregs Control Background? CLEAR/WHITE (CLR/WHITE); Pregs Control Bar Appear? YES (CONTROL BAR)
[2022-12-22 01:11] LABS: ALT (SGPT) 29 U/L (8-55); AST (SGOT) 33 U/L (5-34); Alkaline Phosphatase 75 U/L (40-110); Anion Gap 16 mmol/L (10-20); BUN (Urea Nitrogen) 13 mg/dL (7.0-18.7); Bilirubin, Total 0.4 mg/dL (0.2-1.2); Calc. Creatinine Clearance 0 mL/min (70-130); Calcium 9.2 mg/dL (7.8-10.44); Carbon Dioxide 19 mmol/L (22-29); Chloride 104 mmol/L (98-107); Estimated GFR 91; Globulin 3.9 g/dL (2.4-3.5); Glucose 85 mg/dL (70-105); Potassium 3.8 mmol/L (3.5-5.1); Protein, Total 7.9 g/dL (6.0-8.3); Sodium 135 mmol/L (136-145)
== END 2022-12-22 00:38 | disposition home or self-care (01) ==
LOC: ERS 20:44
DX: K11.20 Sialoadenitis, unspecified (principal); I11.0 Hypertensive heart disease with heart failure; I50.9 Heart failure, unspecified; E11.9 Type 2 diabetes mellitus without complications; Z79.899 Other long term (current) drug therapy; Z79.82 Long term (current) use of aspirin; Z79.84 Long term (current) use of oral hypoglycemic drugs
CPT/HCPCS: 70491; 80053; 84703; 85025; Q9967

== ENCOUNTER 2023-04-01 19:25 | Emergency (ER) | payer OTHER, MEDICAID | END 2023-04-01 21:21 | disposition home or self-care (01) | LOC: ERS 19:25 | DX: M25.531 Pain in right wrist (principal); J44.9 Chronic obstructive pulmonary disease, unspecified; I11.0 Hypertensive heart disease with heart failure; I50.9 Heart failure, unspecified; E11.9 Type 2 diabetes mellitus without complications | CPT/HCPCS: 99283 ==

== ENCOUNTER 2023-09-03 21:45 | Emergency (ER) | payer OTHER | END 2023-09-03 22:20 | disposition home or self-care (01) | LOC: ERS 21:45 | DX: M79.671 Pain in right foot (principal); J44.9 Chronic obstructive pulmonary disease, unspecified; E11.9 Type 2 diabetes mellitus without complications; I11.0 Hypertensive heart disease with heart failure; I50.9 Heart failure, unspecified; Z79.899 Other long term (current) drug therapy; Z79.84 Long term (current) use of oral hypoglycemic drugs | CPT/HCPCS: 99283 ==

== ENCOUNTER 2023-11-05 10:42 | Emergency (ER) | payer OTHER | END 2023-11-05 11:44 | disposition home or self-care (01) | LOC: ERS 10:42 | DX: Z01.818 Encounter for other preprocedural examination (principal) | CPT/HCPCS: 93005 ==

== ENCOUNTER 2023-12-14 02:14 | Emergency (ER) | payer OTHER ==
[2023-12-14 03:33] LABS: #Basophils 0.05 10x3/uL (0.0-0.2); %Eosinophils 4.2 % (0.0-10.0); %Lymphocytes 41.2 % (21.0-51.0); %Monocytes 10.4 % (0.0-10.0); %Neutrophils 42.8 % (42.0-75.0); Hematocrit 37.5 % (36.0-47.0); Hemoglobin 12.1 g/dL (12.0-16.0); Mean Corpuscular HGB CONC 32.3 g/dL (32.0-36.0); Mean Corpuscular Hemoglobin 29.2 pg (27.0-31.0); Mean Corpuscular Volume 90.4 fL (78.0-98.0); Mean Platelet Volume 8.7 fL (7.4-10.4); Platelet Count 257 10x3/uL (130-400); RBC Distribution Width 12.9 % (11.5-14.5); Red Blood Cell (RBC) Count 4.15 mill/uL (4.20-5.40)
[2023-12-14 03:48] LABS: ALT (SGPT) 50 U/L (8-55); AST (SGOT) 49 U/L (5-34); Albumin 3.5 g/dL (3.5-5.0); Alkaline Phosphatase 88 U/L (40-110); Anion Gap 17 mmol/L (10-20); BUN (Urea Nitrogen) 8 mg/dL (7.0-18.7); Bilirubin, Total 0.2 mg/dL (0.2-1.2); Calc. Creatinine Clearance 0 mL/min (70-130); Calcium 9.2 mg/dL (7.8-10.44); Carbon Dioxide 23 mmol/L (22-29); Chloride 102 mmol/L (98-107); Estimated GFR 95; Globulin 4.3 g/dL (2.4-3.5); Glucose 156 mg/dL (70-105); Potassium 4.1 mmol/L (3.5-5.1); Protein, Total 7.8 g/dL (6.0-8.3); Sodium 138 mmol/L (136-145)
== END 2023-12-14 04:07 | disposition home or self-care (01) ==
LOC: ERS 02:14
DX: M79.671 Pain in right foot (principal); M25.571 Pain in right ankle and joints of right foot; E11.9 Type 2 diabetes mellitus without complications; I10 Essential (primary) hypertension; J44.9 Chronic obstructive pulmonary disease, unspecified; Z86.718 Personal history of other venous thrombosis and embolism; Z96.653 Presence of artificial knee joint, bilateral
CPT/HCPCS: 36415; 80053; 85025

== ENCOUNTER 2024-12-12 15:46 | Emergency (ER) | payer OTHER, MEDICAID ==
[2024-12-12 16:31] LABS: #Basophils 0.03 10x3/uL (0.0-0.2); #Eosinophils 0.13 10x3/uL (0.0-0.7); #Monocytes 0.44 10x3/uL (0.11-0.59); #Neutrophils 2.01 10x3/uL (1.40-6.50); %Basophils 0.7 % (0.0-1.0); %Eosinophils 2.9 % (0.0-10.0); %Lymphocytes 42.2 % (21.0-51.0); %Monocytes 9.7 % (0.0-10.0); %Neutrophils 44.3 % (42.0-75.0); Hematocrit 35.6 % (36.0-47.0); Hemoglobin 11.5 g/dL (12.0-16.0); Mean Corpuscular Hemoglobin 28.5 pg (27.0-31.0); Mean Corpuscular Volume 88.3 fL (78.0-98.0); Platelet Count 245 10x3/uL (130-400); Red Blood Cell (RBC) Count 4.03 mill/uL (4.20-5.40); White Blood Cell (WBC) Count 4.53 10x3/uL (4.8-10.8)
[2024-12-12 16:51] LABS: ALT (SGPT) 114 U/L (Less than 34); AST (SGOT) 103 U/L (11-34); Albumin 3.7 g/dL (3.1-4.5); Alkaline Phosphatase 89 U/L (40-110); Anion Gap 14 mmol/L (10-20); BUN (Urea Nitrogen) 13 mg/dL (7.0-18.7); Bilirubin, Total 0.3 mg/dL (0.3-1.2); Calc. Creatinine Clearance 0 mL/min (70-130); Calcium 9.5 mg/dL (7.8-10.44); Carbon Dioxide 25 mmol/L (22-29); Chloride 102 mmol/L (98-107); Globulin 4.3 g/dL (2.4-3.5); Glucose 170 mg/dL (70-105); Potassium 3.3 mmol/L (3.5-5.1); Sodium 138 mmol/L (136-145)
== END 2024-12-12 20:49 ==
LOC: ERS 15:46
DX: R07.9 Chest pain, unspecified (principal); E11.9 Type 2 diabetes mellitus without complications; E03.9 Hypothyroidism, unspecified; I11.0 Hypertensive heart disease with heart failure; I50.9 Heart failure, unspecified; J44.89 Other specified chronic obstructive pulmonary disease; Z86.718 Personal history of other venous thrombosis and embolism; Z79.84 Long term (current) use of oral hypoglycemic drugs; Z79.82 Long term (current) use of aspirin; Z79.51 Long term (current) use of inhaled steroids; Z79.890 Hormone replacement therapy; Z79.899 Other long term (current) drug therapy
CPT/HCPCS: 71045; 80053; 83880; 84484; 85025; 93005

== ENCOUNTER 2024-12-24 14:28 | Outpatient (CLI) | payer OTHER, MEDICAID | END 2024-12-24 14:29 | disposition home or self-care (01) | LOC: BICMRI 14:28 | PROVIDERS: ATTEND Clinical Nurse Specialist Adult Health | DX: M54.16 Radiculopathy, lumbar region (principal); M48.061 Spinal stenosis, lumbar region without neurogenic claudication; M48.07 Spinal stenosis, lumbosacral region | CPT/HCPCS: 72148 ==